=== PATIENT | female | born 1960 | race Caucasian/White ===

== ENCOUNTER → 2020-02-23 07:51 | Outpatient (CLI) | payer BC, OTHER, SELFPAY ==
--- NOTE | 2020-02-23 | DI.ECHO.S_ITS ---
[facility]---------+ [facility] +---------+ : : [address] : : : : [id number] : : : : Phone: [phone]+ Echocardiogram Report + + :Name: SOFIYA RAMOS Study Date: 02/23/2020 Height: 66 in : :[facility] Weight: 216 lb : : Gender: Female BSA: 2.1 m2 : :: 1960 Age: 59 yrs BP: 155/82 mmHg: :Reason For Study: HEMOCHROMATOSIS : :Ordering Physician: BRAD, : :JAVIER BOYD Performed By: Sarah Evans : :Referring: JAVIER SALINAS : + + Interpretation Summary 1) Normal left ventricular thickness, size, wall motion, and systolic function (EF 60-65%). 2) Normal right ventricular size and function. 3) No significant valvular abnormalities. 4) Hypertension present during the study (BP 155/82mmHg). 5) No prior Echo available for comparison. Procedure: A two-dimensional transthoracic echocardiogram with color flow and Doppler was performed. The study quality was technically adequate. There is no prior echocardiogram noted for this patient. The patient was in sinus rhythm with heart rates between 69-78 bpm during the exam. Left Ventricle: The left ventricle is normal in size and wall thickness. The ejection fraction is estimated to be 60-65%. Diastolic parameters suggest probable normal left ventricular diastolic function and normal filling pressures. Right Ventricle: The right ventricle is normal in size and function. Atria: The left atrial size is normal. Right atrial size is normal. There is no Doppler evidence for an interatrial shunt. Mitral Valve: The mitral valve is normal in structure and function. There is trace mitral regurgitation. Aortic Valve: The aortic valve is trileaflet. The aortic valve opens well. There is no aortic valve stenosis. No aortic regurgitation is present. Tricuspid Valve: The tricuspid valve is normal in structure and function. There is trace tricuspid regurgitation. Pulmonary artery pressures cannot be estimated because of the lack of a measurable TR jet velocity. Pulmonic Valve: The pulmonic valve is not well seen, but is grossly normal. There is no pulmonic valvular regurgitation. Great Vessels: The aortic root is normal size. The ascending aorta is at the upper limits of normal in size. The inferior vena cava was not visualized. Pericardium/ Pleura There is no pericardial effusion. There is an anterior echo-free space consistent with a fat pad. There is no pleural effusion. MMode/2D Measurements & Calculations LVIDd: 4.4 cm LVOT diam: 2.0 cm LVIDs: 2.8 cm Ao root diam: 3.3 cm FS: 36.2 % asc Aorta Diam: 3.5 cm EPSS: 0.55 cm Ao Arch Diam (Prox Trans): 2.8 cm IVSd: 0.90 cm LVPWd: 0.70 cm LV gasca. diameter/BSA (cm/m^2): 2.1 LV sys. diameter/BSA (cm/m^2): 1.4 LA A2 area: 15.5 cm2 RA long axis: 4.6 cm LA A4 area: 13.5 cm2 RA area: 12.8 cm2 LA length (vol): 4.9 cm RA vol: 30.1 ml LA vol: 36.3 ml RA : 14.5 ml/m2 LA vol index: 17.6 ml/m2 IVC diam: 1.6 cm RVD1 (basal): 2.9 cm TAPSE: 1.9 cm Doppler Measurements & Calculations Ao V2 max: 91.4 cm/sec LVOT Max Jung: 79.2 cm/sec Ao V2 mean: 64.8 cm/sec LV V1 max P.5 mmHg Ao max P.3 mmHg LV V1 VTI: 14.6 cm Ao mean P.9 mmHg ERNESTO(I,D): 2.5 cm2 Ao V2 VTI: 19.0 cm ERNESTO(V,D): 2.8 cm2 sev ratio: 0.77 ERNESTO indexed to BSA (cm^2/m^2): 1.2 MV E max jung: 51.3 cm/sec PA V2 max: 66.6 cm/sec MV A max jung: 77.9 cm/sec PA V2 mean: 45.6 cm/sec MV E/A: 0.66 PA mean P.96 mmHg Med Peak E' Jung: 6.4 cm/sec PA pr(Accel): 19.1 mmHg E/E' med: 8.0 Lat Peak E' Jung: 6.1 cm/sec E/E' lat: 8.5 E/e' average: 8.2 MV dec time: 0.26 sec SV(LVOT): 47.5 ml Reading Physician:05:40 PM
== END ==
PROVIDERS: Referring Provider Nurse Practitioner; Visit Provider Nurse Practitioner
DX: E83.110 Hereditary hemochromatosis (principal); G47.33 Obstructive sleep apnea (adult) (pediatric); R06.02 Shortness of breath; I10 Essential (primary) hypertension
CPT/HCPCS: 93306

== ENCOUNTER → 2020-03-15 10:44 | Outpatient (CLI) | payer OTHER, SELFPAY ==
[2020-03-15 12:30] LABS: COVID19 -Nasal RAPID Negative (Negative)
== END ==
PROVIDERS: Visit Provider Physician Assistant
DX: Z11.59 Encounter for screening for other viral diseases (principal)
CPT/HCPCS: 87635

== ENCOUNTER 2020-03-21 13:35 | Emergency (ER) | payer OTHER, SELFPAY ==
--- NOTE | 2020-03-21 13:37 | ED_ITS ---
HPI - Dizziness General Chief Complaint: Dizziness Stated Complaint: Dizzy Time Seen by Provider: 03/21/20 13:36 History of Present Illness HPI Narrative: 59-year-old woman with recent diagnosis of hemochromatosis presents with vertigo. She describes the room spinning. Mild symptoms yes terday and worsening over the course of today. She had symptoms similar to this a number of years ago and was found to have hypokalemia. She describes no recent upper respiratory infections, ear infections or sore throat. No recent fever, cough, chills, abdominal pain, constipation, diarrhea or urinary symptoms. She describes no headaches and states that she has but somewhat nauseated with the vertigo today but no emesis. Related Data Previous Rx's Medication Instructions Recorded meclizine 25 mg PO TID PRN #30 tab 03/21/20 ondansetron HCl 4 mg PO Q6H PRN #20 tab 03/21/20 Allergies Allergy/AdvReac Type Severity Reaction Status Date / Time Iodinated Contrast Media Allergy Severe ITCHING Verified 03/21/20 13:47 Penicillins Allergy Severe Hives Verified 03/21/20 13:44 Review of Systems Review of Systems Narrative: Remainder of review of systems including constitutional, ENT, cardiovascular, respiratory, GI, , musculoskeletal, skin, neurologic and psychiatric systems reviewed and are unremarkable except as noted in HPI. Patient History Medical History (Updated 03/21/20 @ 15:14 by Michelle Aguilar MD) Hemochromatosis Social History Smoking Status: Former smoker Exam Narrative Exam Narrative: General: Healthy appearing, in no acute distress. Able to give a complete and coherent history. Well-nourished well-developed HEENT: Moist mucous membranes, normal sclera with reactive pupils, no nystagmus even with positional changes Neck: No JVD, supple Respiratory: Lungs are clear to auscultation, no wheezing no rales no rhonchi. Full and symmetrical air movement Cardiac: Regular rate and rhythm no murmurs no bruits Abdomen: Soft, nontender good bowel tones, no flank pain Skin: Warm and dry, no rashes Neurologic: Grossly neurologically intact with no obvious asymmetries or abnormalities, no sensory abnormalities, no hearing loss Extremities: No trauma, well perfused Psych: Cooperative, appropriate insight and affect Initial Vital Signs Initial Vital Signs: Vital Signs Temperature 98.2 F 12/15/20 13:38 Pulse Rate 78 03/21/20 13:38 Respiratory Rate 20 03/21/20 13:38 Blood Pressure 155/80 H 03/21/20 13:38 Pulse Oximetry 97 03/21/20 13:38 Course Orders Ordered: ED Orders 03/21/20 13:56 Complete Blood Count AUTO DIFF Stat Comprehensive Metabolic Panel Stat Iron Stat Total Iron Binding Capacity Stat Discontinued Medications Sodium Chloride (Normal Saline 0.9%) 1,000 mls @ 1,000 mls/hr IV BOLUS ONE Stop: 03/21/20 14:46 Last Infusion: 03/21/20 14:53 Dose: 0 mls/hr Documented by: Admin: 03/21/20 13:52 Dose: 1,000 mls/hr Documented by: LACHO Lorazepam (Lorazepam 0.5 Mg Tablet) 0.5 mg PO NOW ONE Stop: 03/21/20 15:08 Meclizine HCl (Meclizine Hcl 12.5 Mg Tablet) 25 mg PO NOW ONE Stop: 03/21/20 13:48 Last Admin: 03/21/20 13:51 Dose: 25 mg Documented by: LACHO Ondansetron HCl (Ondansetron 4 Mg/2 Ml Inj) 4 mg IV NOW ONE Stop: 03/21/20 13:48 Last Admin: 03/21/20 13:51 Dose: 4 mg Documented by: LACHO Vital Signs Vital signs: Vital Signs - 8 hr 03/21/20 13:38 03/21/20 13:40 03/21/20 14:00 Temperature 98.2 F Pulse Rate 78 80 73 Respiratory Rate 20 21 18 Blood Pressure 155/80 H 155/80 H Pulse Oximetry 97 96 97 MDM - Dizziness Medical Records Attestation: I reviewed the patient's medical records. Lab Data Attestation: I reviewed the patient's lab results. Result diagrams: 03/21/20 13:56 03/21/20 13:56 Labs: Lab Results 03/21/20 03/21/20 03/21/20 Range/Units 13:56 13:56 13:56 WBC 6.1 (4.5-11.0) X10^3/uL RBC 4.45 (4.0-5.2) X10^6/uL Hgb 12.3 (12.0-16.0) g/dL Hct 37.5 (36-46) % MCV 84.4 (80-100) fL MCH 27.7 (26-34) PG MCHC 32.8 (30-36) % RDW 14.7 (11.6-14.8) % Plt Count 206 (150-400) X10^3/uL Neut % (Auto) 70.0 (50-75) % Lymph % (Auto) 21.0 L (25-40) % [place] % (Auto) 7.5 (3-14) % Eos % (Auto) 0.9 L (2-4) % Baso % (Auto) 0.6 (0-2) % Neut # (Auto) 4300 (7453-8191) /uL Lymph # (Auto) 1300 (3022-0613) /uL [place] # (Auto) 500 (0-900) /uL Eos # (Auto) 100 (0-450) /uL Baso # (Auto) 0 (0-100) /uL Sodium 134 L (137-145) mmol/L Potassium 4.1 (3.4-5.1) mmol/L Chloride 99 (98-107) mmol/L Carbon Dioxide 31 (22-32) mmol/L BUN 14 (7-17) mg/dL Creatinine 0.62 (0.52-1.04) mg/dL Estimated GFR > 60.0 (>60) mL/min BUN/Creatinine Ratio 22.6 H (6-22) Glucose 112 H (80-110) mg/dL Calcium 9.4 (8.4-10.2) mg/dL Iron 76 (37-170) ug/dL TIBC 326 (265-497) ug/dL Total Bilirubin 0.5 (0.2-1.3) mg/dL AST 45 H (14-36) IU/L ALT 48 H (<35) IU/L Alkaline Phosphatase 101 (38-126) U/L Total Protein 7.4 (6.3-8.2) g/dL Albumin 4.1 (3.5-5.0) g/dL Globulin 3.3 (1.7-4.1) g/dL Albumin/Globulin Ratio 1.2 (1.0-2.8) MDM Narrative Medical decision making narrative: 59-year-old woman with increasing vertigo over the last 24 hours. No acute life-threatening findings have been identified. No evidence of stroke or infection. She has responded partially to meclizine and Zofran. At this point she is safe for home discharge Discharge Plan Departure Patient Disposition: Home Clinical Impression: Vertigo Instructions: DI for Vertigo Activity Restrictions/Additional Instructions: Thank you for coming in today Your blood work is reassuring. Your iron level is at 76, also reassuring in light of your hemochromatosis. I am not finding any life-threatening reasons for the vertigo that your currently experiencing. As we discussed in the emergency room you are not showing signs or symptoms of a stroke at this time either. Please use the meclizine/Antivert to help with the room spinning affects. You can use the ondansetron/Zofran for actual nausea. If symptoms are worsening or persisting longer than 2 weeks, it would be very appropriate to seek further evaluation. I hope you feel better Prescriptions: New meclizine 25 mg tablet 25 mg PO TID PRN (Reason: vertigo) Qty: 30 RF: 0 ondansetron HCl 4 mg tablet 4 mg PO Q6H PRN (Reason: nausea) Qty: 20 RF: 0 Referrals: Miscellaneous,Doctor, MD [Primary Care Provider] -
[2020-03-21 13:38] VITALS: BP 155/80; PULSE 78; RESP 20; TEMP 36.8; O2SAT 97; BMI 33.4
[2020-03-21 13:40] VITALS: BP 155/80; PULSE 80; RESP 21; O2SAT 96
[2020-03-21] MEDS: ONDANSETRON 4 MG/2 ML INJ IV (13:51)
[2020-03-21] MEDS: MECLIZINE HCL 12.5 MG TABLET 25 MG PO (13:51)
[2020-03-21] MEDS: SODIUM CHLORIDE 0.9% 1,000 ML 1000 ML IV (13:52)
[2020-03-21 14:00] VITALS: PULSE 73; RESP 18; O2SAT 97
[2020-03-21 14:03] LABS: Add Manual Diff / Slide Review NO; Basophils Absolute Auto 0 /uL (0-100); Basophils Percent Auto 0.6 % (0-2); Eosinophils Absolute Auto 100 /uL (0-450); Eosinophils Percent Auto 0.9 % (2-4); Hematocrit 37.5 % (36-46); Hemoglobin 12.3 g/dL (12.0-16.0); Lymphocytes Absolute Auto 1300 /uL (1100-4500); Mean Corpuscular HGB Conc 32.8 % (30-36); Mean Corpuscular Hemoglobin 27.7 PG (26-34); Mean Corpuscular Volume 84.4 fL (80-100); Monocytes Absolute Auto 500 /uL (0-900); Monocytes Percent Auto 7.5 % (3-14); Neutrophils Absolute Auto 4300 /uL (1500-7000); Platelet Count 206 X10^3/uL (150-400); Red Blood Cell Count 4.45 X10^6/uL (4.0-5.2); Red Cell Distribution Width 14.7 % (11.6-14.8); White Blood Cell Count 6.1 X10^3/uL (4.5-11.0)
[2020-03-21 14:14] LABS: Alanine Aminotransferase 48 IU/L (<35); Albumin 4.1 g/dL (3.5-5.0); Albumin Globulin Ratio 1.2 (1.0-2.8); Alkaline Phosphatase 101 U/L (38-126); Aspartate Aminotransferase 45 IU/L (14-36); BUN Creatinine Ratio 22.6 (6-22); Bilirubin Total 0.5 mg/dL (0.2-1.3); Blood Urea Nitrogen 14 mg/dL (7-17); Calcium 9.4 mg/dL (8.4-10.2); Carbon Dioxide 31 mmol/L (22-32); Chloride 99 mmol/L (98-107); Estimated Glomerular Filt Rate > 60.0 mL/min (>60); Globulin 3.3 g/dL (1.7-4.1); Glucose 112 mg/dL (80-110); HEMOLYSIS < 15 (0-50); Potassium 4.1 mmol/L (3.4-5.1); Sodium 134 mmol/L (137-145); Total Protein 7.4 g/dL (6.3-8.2)
[2020-03-21 14:29] LABS: Iron 76 ug/dL (37-170)
[2020-03-21 14:30] VITALS: PULSE 80; RESP 11; O2SAT 95
[2020-03-21 14:39] LABS: Total Iron Binding Capacity 326 ug/dL (265-497)
[2020-03-21 15:00] VITALS: PULSE 82; RESP 16; O2SAT 95
[2020-03-21] MEDS: LORazepam 0.5 MG TABLET PO (15:40)
[2020-03-21 16:11] VITALS: BP 120/71; PULSE 84; O2SAT 97
== END 2020-03-21 16:21 | disposition home or self-care (01) ==
PROVIDERS: Emergency Provider Emergency Medicine
DX: R42 Dizziness and giddiness (principal); E87.6 Hypokalemia; E83.119 Hemochromatosis, unspecified
CPT/HCPCS: 36415; 80053; 83540; 83550; 85025; 96361; 96374; 99281; 99284; J2405

== ENCOUNTER → 2020-03-29 08:36 | Outpatient (CLI) | payer OTHER, SELFPAY ==
--- NOTE | 2020-03-30 15:49 | DI.NM.S_ITS ---
DATE OF SERVICE: 03/29/2020 PROCEDURE: Exercise perfusion study. INDICATIONS: Shortness of breath, hypertension, history of hemochromatosis. RADIOPHARMACEUTICAL: 25.8 millicurie technetium-99m Myoview IV was injected at stress and 25.9 millicurie technetium-99m Myoview IV was injected at rest. CARDIAC STRESS: The patient underwent exercise perfusion study under the supervision of an attending staff. She walked on Siva protocol for 6 minutes and 38 seconds, achieved 7 METs of workload, normal hemodynamic response. Maximum heart rate was about 130 beats per minute. Baseline rhythm was sinus and low-voltage complexes. During exercise, there were significant artifacts, hence, difficult to interpret stress EKG. However, in the immediate recovery, there were no concerning significant ischemic changes. There were no significant arrhythmias. No chest pain was reported. RAW DATA: Breast shadow was seen. GATED STUDY: Stress LV ejection fraction 93 percent without any obvious wall motion abnormalities. Resting end-diastolic volume 59 mL. TID ratio 0.65, which is within normal limits. Lung/heart ratio 0.17, which is within normal limits. MYOCARDIAL PERFUSION: Stress supine, resting supine and stress prone images were compared to each other. The stress and resting supine images reveal small size, mildly decreased perfusion of distal anterior wall, which got resolved during prone images suggestive of breast tissue attenuation artifact. No convincing ischemia or infarction pattern during prone images. CONCLUSION: I will call this study in a normal myocardial perfusion study with evidence of breast tissue attenuation artifact, which got resolved during prone images. Normal hemodynamic response. The patient achieved 7 METs of workload. Functional aerobic impairment 0 percent. No significant arrhythmia seen. Overall this is a low-risk exercise perfusion stress test. Kristen Blue - KARMA/darnell/paulina doc#: [id number]/job#: [id number] dd: 03/30/2020 13:58:00 dt: 03/30/2020 15:28:00 DICTATING MD/COPIES TO: Riley Palmer MD COPIES MNE: MARYSOL;
== END ==
PROVIDERS: Referring Provider Nurse Practitioner; Visit Provider Nurse Practitioner
DX: E83.110 Hereditary hemochromatosis (principal); R06.02 Shortness of breath; I10 Essential (primary) hypertension
CPT/HCPCS: 78452; 93017; A9502

== ENCOUNTER → 2020-03-29 10:16 | Outpatient (CLI) | payer OTHER, SELFPAY ==
[2020-03-29 11:07] LABS: COVID19 -Nasal RAPID Negative (Negative)
== END ==
PROVIDERS: Visit Provider Physician Assistant
DX: Z20.828 Contact with and (suspected) exposure to other viral communicable diseases (principal)
CPT/HCPCS: 87635

== ENCOUNTER → 2020-10-23 10:05 | Outpatient (CLI) | payer OTHER, SELFPAY ==
[2020-10-23 10:31] LABS: Add Manual Diff / Slide Review NO; Basophils Absolute Auto 100 /uL (0-100); Basophils Percent Auto 0.9 % (0-2); Eosinophils Absolute Auto 100 /uL (0-450); Eosinophils Percent Auto 1.3 % (2-4); Hematocrit 38.2 % (36-46); Hemoglobin 13.4 g/dL (12.0-16.0); Lymphocytes Absolute Auto 1700 /uL (1100-4500); Lymphocytes Percent Auto 28.7 % (25-40); Mean Corpuscular HGB Conc 35.1 % (30-36); Mean Corpuscular Hemoglobin 30.9 PG (26-34); Mean Corpuscular Volume 87.9 fL (80-100); Monocytes Absolute Auto 500 /uL (0-900); Monocytes Percent Auto 9.3 % (3-14); Neutrophils Absolute Auto 3500 /uL (1500-7000); Neutrophils Percent Auto 59.8 % (50-75); Platelet Count 198 X10^3/uL (150-400); Red Blood Cell Count 4.35 X10^6/uL (4.0-5.2); Red Cell Distribution Width 12.9 % (11.6-14.8); White Blood Cell Count 5.9 X10^3/uL (4.5-11.0)
[2020-10-23 10:44] LABS: Alanine Aminotransferase 49 IU/L (<35); Albumin 4.5 g/dL (3.5-5.0); Albumin Globulin Ratio 1.4 (1.0-2.8); Alkaline Phosphatase 89 U/L (38-126); Aspartate Aminotransferase 52 IU/L (14-36); BUN Creatinine Ratio 19.5 (6-22); Bilirubin Total 0.4 mg/dL (0.2-1.3); Blood Urea Nitrogen 15 mg/dL (7-17); Carbon Dioxide 27 mmol/L (22-32); Chloride 101 mmol/L (98-107); Cholesterol 252 mg/dL (140-199); Estimated Glomerular Filt Rate > 60.0 mL/min (>60); Globulin 3.2 g/dL (1.7-4.1); Glucose 113 mg/dL (80-110); HDL Cholesterol 64 mg/dL (40-60); HEMOLYSIS < 15 (0-50); LDL Cholesterol Calculated 158 mg/dL (<100); Potassium 3.9 mmol/L (3.4-5.1); Sodium 135 mmol/L (137-145); Total Protein 7.7 g/dL (6.3-8.2); Triglycerides 151 mg/dL (35-150)
== END ==
PROVIDERS: PCP Registered Nurse; Referring Provider Registered Nurse; Visit Provider Registered Nurse
DX: E83.119 Hemochromatosis, unspecified (principal); R53.83 Other fatigue; E78.5 Hyperlipidemia, unspecified
CPT/HCPCS: 36415; 80053; 80061; 85025

== ENCOUNTER → 2021-01-09 09:09 | Outpatient (CLI) | payer OTHER, SELFPAY ==
[2021-01-09 10:19] LABS: Alanine Aminotransferase 55 IU/L (<35); Albumin 4.7 g/dL (3.5-5.0); Albumin Globulin Ratio 1.5 (1.0-2.8); Alkaline Phosphatase 100 U/L (38-126); Aspartate Aminotransferase 50 IU/L (14-36); Bilirubin Total 0.4 mg/dL (0.2-1.3); Blood Urea Nitrogen 18 mg/dL (7-17); Calcium 9.9 mg/dL (8.4-10.2); Carbon Dioxide 31 mmol/L (22-32); Chloride 97 mmol/L (98-107); Globulin 3.2 g/dL (1.7-4.1); Glucose 105 mg/dL (80-110); HEMOLYSIS < 15 (0-50); Potassium 4.3 mmol/L (3.4-5.1); Sodium 136 mmol/L (137-145); Total Protein 7.9 g/dL (6.3-8.2)
[2021-01-09 16:03] LABS: BUN Creatinine Ratio 24.3 (6-22); Estimated Glomerular Filt Rate > 60.0 mL/min (>60)
== END ==
PROVIDERS: PCP Registered Nurse; Referring Provider Registered Nurse; Visit Provider Registered Nurse
DX: E83.119 Hemochromatosis, unspecified (principal); R53.83 Other fatigue
CPT/HCPCS: 36415; 80053

== ENCOUNTER → 2021-01-22 08:28 | Outpatient (CLI) | payer OTHER, SELFPAY ==
--- NOTE | 2021-01-22 08:31 | DI.RAD.S_ITS ---
PROCEDURE: XR HUMERUS RT 2V INDICATIONS: Right upper arm pain TECHNIQUE: 2 views of the humerus were acquired. COMPARISON: None. FINDINGS: Bones: No acute, displaced fracture or dislocation. Minimal cortical irregularity of the humeral head, which may reflect prior Hill-Sachs deformity. Mild arthrosis of the AC joint with inferior osteophyte extending from the acromion. No suspicious bony lesions. Soft tissues: No suspicious soft tissue calcifications. IMPRESSION: No acute osseous abnormality. Dictated by: Delfin Palomares M.D. on 01/22/2021 at 9:25 Approved by: Delfin Palomares M.D. on 01/22/2021 at 9:26
--- NOTE | 2021-01-22 08:31 | DI.RAD.S_ITS ---
PROCEDURE: XR SHOULDER RT MIN 2V INDICATIONS: right shoulder pain TECHNIQUE: 3 views of the shoulder were acquired. COMPARISON: None. FINDINGS: Bones: No acute, displaced fracture or dislocation. Small osteophyte extending from the inferior aspect of the acromion. Minimal cortical irregularity of the humeral head, which may reflect prior Hill-Sachs deformity. No suspicious bony lesions. Visualized ribs appear intact. Soft tissues: No suspicious soft tissue calcifications. IMPRESSION: No acute osseous abnormality. Dictated by: Delfin Palomares M.D. on 01/22/2021 at 9:27 Approved by: Delfin Palomares M.D. on 01/22/2021 at 9:28
--- NOTE | 2021-01-22 08:31 | DI.RAD.S_ITS ---
PROCEDURE: XR CERVICAL SPINE 2V OR 3V INDICATIONS: Neck pain TECHNIQUE: 3 view(s) of the cervical spine were acquired. COMPARISON: None. FINDINGS: Bones: No fractures or dislocations to the C7 level. The lateral masses of C1 appear intact on the odontoid view. Mild to moderate disc height loss with endplate osteophytosis, most prominent at C4 -7. Uncovertebral/facet arthrosis is noted. No suspicious bony lesions. Soft tissues: No prevertebral soft tissue swelling. IMPRESSION: No acute osseous abnormality. Dictated by: Delfin Palomares M.D. on 01/22/2021 at 9:28 Approved by: Delfin Palomares M.D. on 01/22/2021 at 9:29
== END ==
PROVIDERS: PCP Registered Nurse; Referring Provider Registered Nurse; Visit Provider Registered Nurse
DX: M79.601 Pain in right arm (principal); M25.511 Pain in right shoulder; M54.2 Cervicalgia
CPT/HCPCS: 72040; 73030; 73060

== ENCOUNTER → 2021-10-22 15:43 | Outpatient (CLI) | payer OTHER, SELFPAY ==
[2021-10-22 16:23] LABS: Add Manual Diff / Slide Review NO; Basophils Absolute Auto 0 /uL (0-100); Basophils Percent Auto 0.4 % (0-2); Eosinophils Absolute Auto 100 /uL (0-450); Eosinophils Percent Auto 0.8 % (2-4); Hematocrit 36.5 % (36-46); Lymphocytes Absolute Auto 2000 /uL (1100-4500); Lymphocytes Percent Auto 24.8 % (25-40); Mean Corpuscular HGB Conc 35.8 % (30-36); Mean Corpuscular Volume 86.7 fL (80-100); Monocytes Absolute Auto 600 /uL (0-900); Monocytes Percent Auto 7.8 % (3-14); Neutrophils Absolute Auto 5400 /uL (1500-7000); Neutrophils Percent Auto 66.2 % (50-75); Platelet Count 233 X10^3/uL (150-400); Red Blood Cell Count 4.21 X10^6/uL (4.0-5.2); Red Cell Distribution Width 12.7 % (11.6-14.8); White Blood Cell Count 8.2 X10^3/uL (4.5-11.0)
[2021-10-22 16:42] LABS: Cholesterol 266 mg/dL (140-199); HDL Cholesterol 58 mg/dL (40-60); LDL Cholesterol Calculated 145 mg/dL (<100); Triglycerides 315 mg/dL (35-150)
[2021-10-22 16:43] LABS: Alanine Aminotransferase 37 IU/L (<35); Albumin 4.9 g/dL (3.5-5.0); Albumin Globulin Ratio 1.5 (1.0-2.8); Alkaline Phosphatase 102 U/L (38-126); Aspartate Aminotransferase 42 IU/L (14-36); BUN Creatinine Ratio 22.8 (6-22); Bilirubin Total 0.4 mg/dL (0.2-1.3); Blood Urea Nitrogen 18 mg/dL (7-17); Calcium 9.9 mg/dL (8.4-10.2); Carbon Dioxide 31 mmol/L (22-32); Chloride 95 mmol/L (98-107); Estimated Glomerular Filt Rate > 60 mL/min (>60); Globulin 3.3 g/dL (1.7-4.1); Glucose 91 mg/dL (80-110); HEMOLYSIS < 15 (0-50); Potassium 3.7 mmol/L (3.4-5.1); Sodium 133 mmol/L (137-145); Total Protein 8.2 g/dL (6.3-8.2)
[2021-10-22 17:10] LABS: TSH w/ Reflex to FT4 2.75 uIU/mL (0.47-4.68)
[2021-10-22 19:09] LABS: Hemoglobin A1C% w Est Avg Glu 5.9 % (4.0-6.0)
== END ==
PROVIDERS: Registered Nurse; PCP Pediatrics; Referring Provider Pediatrics; Visit Provider Pediatrics
DX: E78.5 Hyperlipidemia, unspecified (principal); F41.8 Other specified anxiety disorders; K76.0 Fatty (change of) liver, not elsewhere classified; M53.3 Sacrococcygeal disorders, not elsewhere classified; E66.9 Obesity, unspecified
CPT/HCPCS: 36415; 80053; 80061; 83036; 84443; 85025

== ENCOUNTER → 2022-01-22 16:50 | Outpatient (CLI) | payer OTHER, SELFPAY ==
--- NOTE | 2022-01-22 16:53 | DI.MRI.S_ITS ---
PROCEDURE: MR SHOULDER RT WO CON INDICATIONS: PAIN IN RT. SHOULDER TECHNIQUE: Noncontrast oblique coronal T2 fast spin echo with fat saturation, oblique sagittal T1 spin echo and T2 fast spin echo with fat saturation, axial T1 spin echo and T2 fast spin echo with fat saturation through the shoulder. COMPARISON: [facility], CR, XR SHOULDER RT MIN 2V, 01/22/2021, 8:35. [facility], CR, XR SHOULDER 2+ VIEWS RIGHT, 01/08/2022, 15:42. FINDINGS: Image quality: Excellent. Rotator cuff: There is complete tearing of the supraspinatus and infraspinatus tendons from their distal insertions with proximal tendon retraction measuring up to 4 cm. There is mild atrophy and grade 2 fatty infiltration of the supraspinatus and infraspinatus muscles. The teres minor tendon is intact. There is high-grade partial articular sided tearing of the subscapularis tendon at the distal insertion versus complete tearing with scarring in situ. The myotendinous junction appears mildly retracted. There is moderate atrophy and grade 2-3 fatty infiltration of the superior portion of the subscapularis muscle. Grade 2 fatty infiltration of the teres minor muscle may be secondary to chronic denervation changes. No mass is seen along the course of the axillary nerve. Bones and bursae: No acute trabecular bone injury or fracture. The humeral head is high riding and abuts the undersurface of the acromion with mild associated degenerative changes. Multifocal cartilage irregularity is seen in the glenohumeral joint with marginal osteophyte formation. Osseous remodeling of the posterosuperior humeral head may be related to chronic rotator cuff tendon tearing versus possibly a prior impaction injury. Rtlb-bf-vzexyeqs degenerative changes at the acromioclavicular joint with small marginal osteophytes and subchondral cystic changes. A small glenohumeral joint effusion communicates with the subacromial/subdeltoid bursa. Capsule and soft tissues: There is diffuse labral degeneration. The proximal biceps long head tendon is completely torn from its origin with distal tendon retraction. There is mild partial effacement of the fat in the rotator interval. Glenohumeral ligaments are grossly intact. IMPRESSION: 1. 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 Mild atrophy and grade 2 fatty infiltration of the supraspinatus and infraspinatus muscles is seen. The humeral head is high riding and abuts the undersurface of the acromion with associated degenerative changes. 2. High-grade partial articular sided tearing versus complete tearing with scarring in situ involving the superior subscapularis tendon. The myotendinous junction appears mildly retracted. There is moderate atrophy and grade 2-3 fatty infiltration of the subscapularis muscle superiorly. 3. Grade 2 fatty infiltration of the teres minor muscle is nonspecific and may be related to chronic denervation changes. No mass is seen along the course of the axillary nerve. 4. Complete tearing and distal retraction of the biceps long head tendon. 5. Diffuse labral degeneration. Grade 2-3 chondromalacia in the glenohumeral joint. 6. Krxa-eq-iknvezmd degenerative changes at the acromioclavicular joint. 7. Small glenohumeral effusion communicates with the subacromial/subdeltoid bursa. Approved by: James Pearson M.D. on 01/23/2022 at 9:43
== END ==
PROVIDERS: PCP Pediatrics; Referring Provider Orthopaedic Surgery; Visit Provider Orthopaedic Surgery
DX: M75.121 Complete rotator cuff tear or rupture of right shoulder, not specified as traumatic (principal); S46.111A Strain of muscle, fascia and tendon of long head of biceps, right arm, initial encounter; M25.511 Pain in right shoulder; M94.211 Chondromalacia, right shoulder; M25.411 Effusion, right shoulder
CPT/HCPCS: 73221

== ENCOUNTER → 2024-07-09 08:32 | Outpatient (CLI) | payer OTHER, SELFPAY ==
[2024-07-09 09:30] LABS: Add Manual Diff / Slide Review NO; Basophils Absolute Auto 0 /uL (0-100); Basophils Percent Auto 0.4 % (0-2); Eosinophils Absolute Auto 0 /uL (0-450); Eosinophils Percent Auto 0.7 % (2-4); Hematocrit 38.9 % (36-46); Hemoglobin 13.3 g/dL (12.0-16.0); Lymphocytes Absolute Auto 1300 /uL (1100-4500); Lymphocytes Percent Auto 24.6 % (25-40); Mean Corpuscular HGB Conc 34.2 % (30-36); Mean Corpuscular Hemoglobin 30.4 PG (26-34); Mean Corpuscular Volume 88.7 fL (80-100); Monocytes Absolute Auto 400 /uL (0-900); Monocytes Percent Auto 7.2 % (3-14); Neutrophils Absolute Auto 3600 /uL (1500-7000); Neutrophils Percent Auto 67.1 % (50-75); Platelet Count 260 X10^3/uL (150-400); Red Blood Cell Count 4.39 X10^6/uL (4.0-5.2); Red Cell Distribution Width 12.5 % (11.6-14.8); White Blood Cell Count 5.4 X10^3/uL (4.5-11.0)
[2024-07-09 10:23] LABS: TSH w/ Reflex to FT4 1.26 uIU/mL (0.47-4.68)
[2024-07-09 10:30] LABS: Alanine Aminotransferase 26 IU/L (<35); Albumin Globulin Ratio 1.6 (1.0-2.8); Alkaline Phosphatase 130 U/L (38-126); Aspartate Aminotransferase 41 IU/L (14-36); BUN Creatinine Ratio 23.5 (6-22); Bilirubin Total 0.5 mg/dL (0.2-1.3); Blood Urea Nitrogen 19 mg/dL (7-17); Calcium 10.3 mg/dL (8.4-10.2); Carbon Dioxide 25 mmol/L (22-32); Chloride 92 mmol/L (98-107); Cholesterol 203 mg/dL (140-199); Estimated Glomerular Filt Rate > 60 mL/min (>60); Globulin 3.1 g/dL (1.7-4.1); Glucose 114 mg/dL (80-110); HDL Cholesterol 75 mg/dL (40-60); HEMOLYSIS < 15 (0-50); LDL Cholesterol Calculated 102 mg/dL (<100); Potassium 4.2 mmol/L (3.4-5.1); Sodium 129 mmol/L (137-145); Total Protein 8.1 g/dL (6.3-8.2); Triglycerides 131 mg/dL (35-150)
[2024-07-09 10:48] LABS: Vitamin D 25 Hydroxy (D3) 33.5 ng/mL (30.0-100.0)
== END ==
PROVIDERS: PCP Family Medicine; Referring Provider Family Medicine; Visit Provider Family Medicine
DX: I10 Essential (primary) hypertension (principal); K21.9 Gastro-esophageal reflux disease without esophagitis; E78.5 Hyperlipidemia, unspecified; E83.119 Hemochromatosis, unspecified
CPT/HCPCS: 36415; 80053; 80061; 82306; 84443; 85025

== ENCOUNTER → 2024-10-19 10:52 | Outpatient (CLI) | payer OTHER, SELFPAY ==
--- NOTE | 2024-10-19 10:54 | DI.RAD.S_ITS ---
PROCEDURE: XR KNEE LT 3V INDICATIONS: screening TECHNIQUE: 3 views of the knee were acquired. COMPARISON: None. FINDINGS: Bones: There are no osseous abnormalities. Joints: Moderate patellofemoral and mild tibiofemoral degenerative change appreciated. There is mild lateral patellar subluxation from the trochlear groove. Soft tissues: Normal IMPRESSION: Degeneration. Mild lateral patellar subluxation . Dictated by: Modesto Arthur M.D. on 10/20/2024 at 11:05 Approved by: Modesto Arthur M.D. on 10/20/2024 at 11:06
--- NOTE | 2024-10-19 10:54 | DI.RAD.S_ITS ---
PROCEDURE: XR HIP W PEL IF DONE LT 2V INDICATIONS: screening TECHNIQUE: Two views of the left hip were acquired. COMPARISON: None. FINDINGS: Bones: There are no osseous abnormalities. SI and hip joints: Severe bilateral hip and mild bilateral SI degenerative change noted. There is severe L5-S1 degenerative disc and facet disease Soft tissues: No soft tissue swelling, calcification or mass. IMPRESSION: Severe bilateral hip degeneration. Severe L5-S1 degenerative disc and facet disease Dictated by: Modesto Arthur M.D. on 10/20/2024 at 11:04 Approved by: Modesto Arthur M.D. on 10/20/2024 at 11:05
--- NOTE | 2024-10-19 10:54 | DI.RAD.S_ITS ---
PROCEDURE: XR LUMBAR SPINE 2-3V INDICATIONS: screening TECHNIQUE: 3 views of the lumbar spine were acquired. COMPARISON: None. FINDINGS: Lumbar spine curvature and alignment: Moderate idiopathic levo scoliotic curve appreciated with the apex at L3. Bones: Mild right lateral wedging L2-L3 and L4 vertebral bodies noted. Disc spaces: Severe degenerative disc disease T12-L1 through L3-4 . There is also mild L4-5 and L5-S1 degenerative disc disease. Moderate L2-3 L3-4 L4-5 and severe L5-S1 degenerative facet disease. Severe severe left hip degeneration noted Soft tissues: No soft tissue swelling, calcification or mass. IMPRESSION: Degeneration Dictated by: Modesto Arthur M.D. on 10/20/2024 at 11:06 Approved by: Modesto Arthur M.D. on 10/20/2024 at 11:08
== END ==
PROVIDERS: PCP Family Medicine; Referring Provider Family Medicine; Visit Provider Family Medicine
DX: M16.0 Bilateral primary osteoarthritis of hip (principal); M17.12 Unilateral primary osteoarthritis, left knee; S83.012A Lateral subluxation of left patella, initial encounter; M43.06 Spondylolysis, lumbar region; M47.816 Spondylosis without myelopathy or radiculopathy, lumbar region; M47.817 Spondylosis without myelopathy or radiculopathy, lumbosacral region; M51.35 Other intervertebral disc degeneration, thoracolumbar region; M51.369 Other intervertebral disc degeneration, lumbar region without mention of lumbar back pain or lower extremity pain; M51.379 Other intervertebral disc degeneration, lumbosacral region without mention of lumbar back pain or lower extremity pain
CPT/HCPCS: 72100; 73502; 73562

== ENCOUNTER → 2024-12-14 06:51 | Outpatient (CLI) | payer MEDICARE, OTHER, SELFPAY ==
--- NOTE | 2024-12-14 06:53 | DI.US.S_ITS ---
PROCEDURE: US ARTERIAL DUPLEX LE BI INDICATIONS: HYPERLIPIDEMIA. NON-HEALING WOUND LEFT LEG. TECHNIQUE: Color and pulse Doppler interrogation was performed of both lower extremity arterial systems, with image documentation. COMPARISON: None. FINDINGS: Right lower extremity: Common femoral artery: 193 cm/sec, with triphasic flow. Deep femoral artery: 101 cm/sec, with triphasic flow. Proximal superficial femoral artery: 107 cm/sec, with triphasic flow. Mid superficial femoral artery: 95 cm/sec, with triphasic flow. Distal superficial femoral artery: 73 cm/sec, with triphasic flow. Popliteal artery: 54 cm/sec, with triphasic flow. Posterior tibial artery: 75 cm/sec, with triphasic flow. Anterior tibial artery/dorsalis pedis: 75 cm/sec, with triphasic flow. Sherman-scale imaging description: Scattered mild atherosclerotic plaque and calcifications. Left lower extremity: Common femoral artery: 128 cm/sec, with triphasic flow. Deep femoral artery: 109 cm/sec, with triphasic flow. Proximal superficial femoral artery: 106 cm/sec, with triphasic flow. Mid superficial femoral artery: 109 cm/sec, with triphasic flow. Distal superficial femoral artery: 83 cm/sec, with triphasic flow. Popliteal artery: 54 cm/sec, with triphasic flow. Posterior tibial artery: 47 cm/sec, with biphasic flow. Anterior tibial artery/dorsalis pedis: 60 cm/sec, with triphasic flow. Sherman-scale imaging description: Scattered mild atherosclerotic plaque and calcifications. IMPRESSION: 1. Increased right common femoral artery velocity may be secondary to a 20-49% stenosis without spectral broadening or turbulence and normal triphasic flow. This may be secondary to underlying proximal iliac arterial disease. 2. Mild 1-19% stenosis of the right posterior tibial and dorsalis pedis arteries. Dictated by: Shyam Castillo M.D. on 12/14/2024 at 10:07 Approved by: Shyam Castillo M.D. on 12/14/2024 at 10:23
== END ==
PROVIDERS: PCP Family Medicine; Referring Provider Family Medicine; Visit Provider Family Medicine
DX: I73.9 Peripheral vascular disease, unspecified (principal)
CPT/HCPCS: 93925

== ENCOUNTER → 2025-01-04 10:30 | Outpatient (CLI) | payer MEDICARE, OTHER, SELFPAY | LOC: WC 10:36 | PROVIDERS: Family Provider Family Medicine; PCP Family Medicine; Referring Provider Orthopaedic Surgery Adult Reconstructive Orthopaedic Surgery; Visit Provider Surgery | DX: T81.89XA Other complications of procedures, not elsewhere classified, initial encounter (principal); S81.802A Unspecified open wound, left lower leg, initial encounter; L98.8 Other specified disorders of the skin and subcutaneous tissue; I10 Essential (primary) hypertension; E78.5 Hyperlipidemia, unspecified; Z87.891 Personal history of nicotine dependence; Z88.0 Allergy status to penicillin | CPT/HCPCS: 11042; 99203; 99213 ==

== ENCOUNTER → 2025-01-11 15:41 | Outpatient (CLI) | payer MEDICARE, OTHER, SELFPAY | LOC: WC 15:44 | PROVIDERS: Family Provider Family Medicine; PCP Family Medicine; Referring Provider Family Medicine; Visit Provider Surgery | DX: T81.89XA Other complications of procedures, not elsewhere classified, initial encounter (principal); S81.802A Unspecified open wound, left lower leg, initial encounter; L98.8 Other specified disorders of the skin and subcutaneous tissue; I10 Essential (primary) hypertension; Z88.0 Allergy status to penicillin | CPT/HCPCS: 97602; 99213 ==

== ENCOUNTER → 2025-01-18 15:16 | Outpatient (CLI) | payer MEDICARE, OTHER, SELFPAY | LOC: WC 15:18 | PROVIDERS: Family Provider Family Medicine; PCP Family Medicine; Referring Provider Orthopaedic Surgery Adult Reconstructive Orthopaedic Surgery; Visit Provider Surgery | DX: S81.802D Unspecified open wound, left lower leg, subsequent encounter (principal); T81.89XD Other complications of procedures, not elsewhere classified, subsequent encounter | CPT/HCPCS: 99212; 99213 ==

== ENCOUNTER → 2025-02-08 08:27 | Outpatient (CLI) | payer MEDICARE, OTHER, SELFPAY ==
--- NOTE | 2025-02-08 09:04 | EKG_ITS ---
[address] [address] Test Date: 2025-02-08 Pat Name: Kristen Blue Department: 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
[2025-02-08 09:07] LABS: Add Manual Diff / Slide Review NO; Hematocrit 34.2 % (36-46); Hemoglobin 11.8 g/dL (12.0-16.0); Lymphocytes Absolute Auto 1200 /uL (1100-4500); Mean Corpuscular HGB Conc 34.6 % (30-36); Mean Corpuscular Hemoglobin 30.6 PG (26-34); Mean Corpuscular Volume 88.4 fL (80-100); Platelet Count 220 X10^3/uL (150-400)
[2025-02-08 09:20] LABS: Hemoglobin A1C% w Est Avg Glu 5.8 % (4.0-6.0)
[2025-02-08 09:47] LABS: Albumin 4.7 g/dL (3.5-5.0); Blood Urea Nitrogen 17 mg/dL (7-17); Calcium 9.9 mg/dL (8.4-10.2); Carbon Dioxide 25 mmol/L (22-32); Chloride 101 mmol/L (98-107); Estimated Glomerular Filt Rate > 60 mL/min (>60); Glucose 118 mg/dL (70-99); HEMOLYSIS < 15 (0-50); Potassium 4.3 mmol/L (3.4-5.1); Sodium 135 mmol/L (137-145)
[2025-02-08 09:56] LABS: Prealbumin 32.2 mg/dL (17.6-36.0)
[2025-02-08 10:07] LABS: Vitamin D 25 Hydroxy (D3) 19.3 ng/mL (30.0-100.0)
== END ==
PROVIDERS: Family Provider Family Medicine; PCP Family Medicine; Referring Provider Orthopaedic Surgery Adult Reconstructive Orthopaedic Surgery; Visit Provider Orthopaedic Surgery Adult Reconstructive Orthopaedic Surgery
DX: Z01.818 Encounter for other preprocedural examination (principal); R73.09 Other abnormal glucose; E83.52 Hypercalcemia; M16.12 Unilateral primary osteoarthritis, left hip; E87.1 Hypo-osmolality and hyponatremia; E66.9 Obesity, unspecified
CPT/HCPCS: 36415; 80048; 82040; 82306; 83036; 84134; 85025; 93005

== ENCOUNTER 2025-04-05 13:03 | Inpatient (IN) | payer MEDICARE, OTHER, SELFPAY ==
[2025-03-25 08:35] VITALS: BMI 274.7
[2025-04-04] VITALS (13 sets, daily range): BP systolic 94–166; BP diastolic 46–86; PULSE 81–99; RESP 14–20; TEMP 36.1–36.8; O2SAT 93–99; BMI 30.7
[2025-04-04] MEDS: LACTATED RINGERS 1,000 ML 42 ML IV ×2 (06:51→08:46)
--- NOTE | 2025-04-04 07:39 | PM.PREOP ---
Pre-operative Note Interval Note History & Physical reviewed/Exam performed by Physician: Yes Changes to H&P: No
--- NOTE | 2025-04-04 07:54 | DI.RAD.S_ITS ---
PROCEDURE: XR HIP W PEL IF DONE LT 2V INDICATIONS: mellissa TECHNIQUE: 2 intraoperative fluoroscopic view(s) of the hip acquired. COMPARISON: [facility], , XR HIP W PEL LT 2V, 10/19/2024, 10:59. FINDINGS: Intraoperative fluoroscopic images shows left total hip arthroplasty in progress. IMPRESSION: Fluoro guidance was provided intraoperatively for left total hip arthroplasty performed by ordering physician. Dictated by: Zane Robins M.D. on 04/04/2025 at 10:37 Approved by: Zane Robins M.D. on 04/04/2025 at 10:38
--- NOTE | 2025-04-04 08:34 | SUR.OPER ---
Supine on padded Mico table with bilateral legs secured in padded positioning boots and suspended in positioning spars, operative leg in traction per surgeon. Head on one pillow. Bilateral arms secured on padded armboards <90 degrees abduction.. Padded perineal post in place per surgeon.
[2025-04-04] MEDS: KETOROLAC 30 MG/ML VIAL 15 MG INJ (08:47)
--- NOTE | 2025-04-04 09:51 | P.OP_ITS ---
Operative Date/Time/Diagnoses Date of procedure: 04/04/25 Time of procedure: 07:45 Pre-op diagnosis: Left hip osteoarthritis Post-op diagnosis: same Procedure & Clinicians Procedure: Left total hip arthroplasty Same procedure(s) as scheduled: Yes Surgeon: Saleem Larson Assisted?: Yes Senior Ui Web Developer: Kassidy Grove Anesthesia Type: General and Local Operative Notes Findings: Severely arthritic hip with reactive inflammatory tissue throughout the hip joint Closure Type: primary Applied: implant(s) Estimated Blood Loss (mL): 250 Procedure in detail: 1. Left Uncemented Direct Anterior Natalee Total Hip Arthroplasty (16220) 2. Computer-Assisted Musculoskeletal Surgical Navigational Orthopedic Procedure Using Fluoroscopic Image Guidance (0054T) Implants: * G7 PPS size 52 cup? * Z1 femoral stem size 4 high offset? * 36 mm +3.5 ceramic femoral head? Procedure Summary: This 64-year-old female patient had severe arthritis and a nonhealing wound on her operative randolph. Prior to proceeding with surgery she had the nonhealing randolph wound treated until it had fully resolved. Intraoperatively today she had large osteophytes around the socket which were removed to limit the risk of impingement. Her soft tissues were fairly mobile and I was able to expose the femur without the need for a conjoined tendon release. I initially trialed with a standard offset and a +0 head but this was unstable and had significantly decreased offset and slightly decreased leg lengths so I upsized to a high offset and a +3.5 head which resolved all of the issues. Stability after final implantation was excellent as I was unable to manually dislocate the hip and was able to maximally externally rotate it to about 100?. Procedure in Detail: This patient was seen preoperatively and evaluated for hip pain which was refractory to numerous nonoperative treatment modalities. Their hip pain correlated with radiographic changes demonstrating significant degeneration in the hip joint. The risks and benefits of continued nonoperative management ve rsus operative management were discussed at length and all of the patient?s questions were answered. Additional educational materials providing further details beyond our discussion in clinic were provided via a publicly available patient education video which included the incidence of medical complications associated with total hip arthroplasty, reasons for revision following total hip arthroplasty, and patient satisfaction rates following total hip arthroplasty. With this understanding of the risks inherent to the procedure, the patient elected to move forward with operative management. Following preoperative optimization, the patient was scheduled for surgery. The patient was met in the preoperative holding area the day of the procedure and all questions were answered. The patient?s nares were swabbed in order to decolonize them from MRSA. Informed consent was signed and the left limb was marked with indelible ink.? The patient was brought back to the operating room where anesthesia was induced. The patient was transferred to the [place] table and all bony prominences were padded. The operative site was prepped and draped in the usual sterile fashion. Prior to incision, tranexamic acid and cefazolin were administered. Operative templating images were displayed demonstrating the anticipated implant sizes and correct operative extremity. A timeout procedure was performed verifying the patient?s identity, medical comorbidities, allergies, relevant medications, anesthesia type and the surgical plan. All present were in agreement. The assistance of a physician general surgery physician assistant was required for positioning, room setup, soft tissue retraction and wound closure. Without this assistance, the procedure would have been significantly more challenging and time consuming.?? A direct anterior approach to the hip was utilized. This was performed with a longitudinal incision through a Heuter interval. The incision was planned 2 cm distal and 2 cm lateral to the ASIS extending towards the lateral patella, in line with the muscle body of the TFL. Following incision, the subcutaneous tissue was dissected while taking care to avoid injury to the lateral femoral cutaneous nerve. The fascia overlying the TFL was identified by dissecting off the overlying fat and identifying perforating vessels to the TFL. The TFL fascia was incised and dissected away from the medial border of the TFL. A retractor was placed over the superior femoral neck between the abductors and the hip capsule and used to reflect the TFL laterally. A [place] self-retainer was then placed in the distal aspect of the wound between the TFL and the rectus femoris. This was tensioned to open up the direct anterior interval and the lateral circumflex vessels were identified and coagulated using electrocautery. The floor of the TFL fascia was incised, exposing the pericapsular fat overlying the hip capsule. A second cobra retractor was placed on the inferior femoral neck. A retractor was placed on the anterior wall of the acetabulum and used to tension the reflected head of rectus femoris, which was then released in order to limit soft tissue tension. A capsulotomy was made in the midline of the anterior hip capsule in line with the femoral neck ending at the vastus tubercle. The anterior retractor was removed as soon as the capsulotomy was completed in order to limit the amount of time that a soft tissue retractor remained on the anterior wall and limit tension on the femoral nerve. Tag stitches were placed in the superior and inferior leaflets of the hip capsule. An Dick soft tissue retractor was introduced over the tag stitches and tensioned in the interval between the rectus femoris and the TFL in order to retract and protect those muscles. The cobra retractors were replaced intracapsularly, with one over the superior neck in the pocket created by the base of the greater trochanter and the other on the femoral head. The capsulotomy was extended laterally to the base of the greater trochanter and medially to the lesser trochanter. This required externally rotating the hip. Once the lesser trochanter had been identified, a neck cut was planned according to measurements from preoperative templating. A ruler was cut at the length measured between the superior aspect of the lesser trochanter and the collar of the prosthesis. This line was extended towards the inferior aspect of the lateral cobra retractor to plan a cut which would leave minimal residual femoral neck laterally. The neck was cut at 60 degrees of external rotation along that line. A second cut was performed to remove a large napkin ring and facilitate head extraction. The napkin ring cut and femoral head were removed.?? A broad anterior wall retractor was placed between the labrum and the anterior capsule so that the anterior capsule would prevent capturing and pinching the femoral nerve anteriorly. An additional retractor was placed on the posterior wall. External rotation and traction were applied through the [place] table so that the cut surface of the femoral neck would not restrict access to the acetabulum. The labrum was excised sharply and the pulvinar was excised with electrocautery to limit bleeding from branches of the obturator artery. Acetabular reamers were selected based on preoperative templating and measurements of the excised femoral head. These were introduced into the acetabulum. Fluoroscopy was utilized to replicate a standing AP pelvis radiograph by centering over the pelvis, rotating until there was appropriate symmetry between the obturator foramen, and introducing caudal tilt to match the position of the pubic symphysis relative to the sacrococcygeal junction according to the patient?s anatomy. Once satisfied with the reaming depth corresponding to the preoperative template and the pinch fit between the columns, an appropriate sized acetabular cup was selected which would provide 1 mm of press-fit. This cup was introduced and manipulated until appropriate abduction and anteversion angles were obtained with careful attention to appropriate abduction and anteversion angles as evaluated by the position of the cup relative to the anterior and posterior dykes of the acetabulum and the AP fluoroscopy which recreated the patient?s standing radiograph. The cup was impacted into place. Peripheral osteophytes were removed. The acetabular liner was then placed with care to ensure locking of the locking mechanism. Attention was then turned to the femur. All retractors were removed, traction was released, a retractor was placed in the interval between the hip capsule and the gluteus minimus. The lateral capsule was released using electrocautery. Traction was released and a [place] hook was placed posteriorly around the proximal femur at the level of the vastus ridge. The table height was lowered in order to restrict the tension on the anterior structures during hip hyperextension to limit the risk of femoral nerve palsy. With traction off and the hip at 90 degrees of external rotation, the hip was hyperextended and adducted while manually elevating the femur away from the acetabulum with the [place] hook to avoid hooking the greater trochanter on the pelvis. An asymmetric retractor was placed over the calcar and a broad double-pronged retractor was placed over the greater trochanter. The tag stitch capturing the lateral leaflet of the capsule was moved to the medial side, leaving the conjoined and piriformis tendons isolated in the face of the greater trochanter. The hip was externally rotated and elevated. A release of the conjoined tendon was not necessary in order to obtain adequate exposure for broaching. The canal was opened with an opening broach and a rasp was used to remove cancellous bone. A rongeur was used to remove the residual lateral bone at the base of the greater trochanter to avoid placing the stem in varus. The femur was then broached to the appropriate sized stem yielding good rotational fit and fill of the canal as well as appropriate version of the stem trial. Neck and head trials were placed, all retractors were removed and the hip was returned to neutral abduction and extension. I then reduced the hip and manually trialed it before changing surgical gloves. Initial trialing was performed with a size 3 broach, a standard offset neck and a +0 head. I initially manually externally rotated the hip and found that it dislocated around 115?. I then locked the hip in 45 degrees of external rotation and dropped it to the floor with traction off which demonstrated no instability. An OrthoGrid overlay image was obtained by matching the abduction angle of the nonoperative hip to the operative hip and overlaying the offset and leg length of the operative side relative to the nonoperative side while matching pelvic morphology. This overlay image demonstrated that the operative site was very slightly short and had significantly decreased offset as compared to the other side. AP and lateral hip fluoroscopic images were obtained to evaluate the broach size which demonstrated good canal fill. The hip was dislocated and I returned to the broaching position. Based on my evaluation during initial trialing I planned to upsize to a high offset and a +3.5 head. After inspecting the size 3 broach I found that I could sink it significantly further down the canal so I went up to a size 4 broach which I was able to sink down to the same point where they size 3 broach had sat. I calcar planed again at that position which did not remove a significant amount of additional bone. The definitive stem was placed and the trunnion was cleaned and dried. I placed a ceramic head onto the trunnion and impacted it into place on the Arizmendi taper.?? All retractors were removed and the hip was reduced. A dilute mixture of betadine and peroxide was used to bathe the soft tissues during final fluoroscopic assessment. Appropriate component positioning was confirmed on an OrthoGrid overlay image comparing the nonoperative side to the operative side. Appropriate stem fill was evaluated on AP and lateral hip radiographs. No previously unrecognized fractures were identified on these radiographs. There was no hip instability with maximum (100?) external rotation as well as a 45 degree drop test. The hip was copiously irrigated with pulse lavage. The capsule was closed with absorbable interrupted suture. The TFL fascia was closed with barbed suture while carefully protecting the lateral femoral cutaneous nerve from entrapment. A mixture of Ropivacaine, Epinephrine and Toradol was infiltrated throughout the soft tissues. The skin was closed with 2-0 and 3-0 sutures. Surgical glue was applied and a soft dressing was placed.??The sponge, instrument and needle counts were reported as being correct at the end of the case.??No obvious complications occurred. The patient was transferred from the [place] table back to a stretcher. The patient emerged from anesthesia without difficulty and was taken to the PACU in a stable condition.? Plan for aftercare: * No hip precautions * Weightbearing as tolerated * Aspirin 81 twice per day for DVT prophylaxis * Anticipate discharge home today * Multimodal pain regimen with no IV opioids ordered * Follow up at [facility] in 2 weeks Complications: none Post-operative Condition: stable Disposition: same day surgery
--- NOTE | 2025-04-04 10:30 | DI.RAD.S_ITS ---
PROCEDURE: XR HIP W PEL IF DONE LT 2V INDICATIONS: POST OP LEFT ANTERIOR HIP TECHNIQUE: AP pelvis and lateral view of the hip acquired. COMPARISON: [facility], [place], XR HIP W PEL LT 2V, 04/04/2025, 8:55. FINDINGS: Bones: Patient is status post left hip arthroplasty, with hardware components in expected positions. The hip joint appears congruent. The visualized bony structures appear intact. Soft tissues: Overlying postoperative changes are noted. No suspicious soft tissue densities. IMPRESSION: Expected post-operative appearance of a hip arthroplasty. Dictated by: Zane Robins M.D. on 04/04/2025 at 13:10 Approved by: Zane Robins M.D. on 04/04/2025 at 13:11
[2025-04-04] MEDS: KETOROLAC 30 MG/ML VIAL 15 MG IV (11:21)
[2025-04-04] MEDS: ACETAMINOPHEN IV 1,000 MG/100 ML VIAL 400 MG IV (11:21)
[2025-04-04] MEDS: ALBUMIN HUMAN 12.5 GM/250 ML VIAL IV (14:07)
[2025-04-04 14:12] LABS: Hematocrit 26.4 % (36-46); Hemoglobin 9.1 g/dL (12.0-16.0)
--- NOTE | 2025-04-04 14:28 | PT-IP ANOTE ---
Tried to see pt in PACU x 2, continues to be orthostatic per RN and receiving fluids. Did not try to mobilize today, will continue to follow as able for evaluation.
--- NOTE | 2025-04-04 15:44 | SUR.PHASEII ---
Received report from Diogo Aguirre RN and assumed care of pt. New labs resulted. Albumin infused and pt resting quietly, awaiting room assignment. VSS with Pt's own CPAP in place.
[2025-04-04] MEDS: ACETAMINOPHEN 325 MG TABLET 650 MG PO ×2 (17:12→21:22)
[2025-04-04] MEDS: LACTATED RINGERS 1,000 ML 100 ML IV ×2 (17:12→23:27)
[2025-04-04] MEDS: ASPIRIN EC 81 MG TABLET PO (20:14)
[2025-04-04] MEDS: SENNOSIDES 8.6 MG TABLET 17.2 MG PO (20:14)
[2025-04-04] MEDS: SODIUM CHLORIDE 0.9% FLUSH 10 ML IV (20:15)
[2025-04-05] MEDS: ACETAMINOPHEN 325 MG TABLET 650 MG PO ×3 (04:00→21:28)
[2025-04-05 05:10] LABS: Add Manual Diff / Slide Review NO; Lymphocytes Absolute Auto 1200 /uL (1100-4500); Mean Corpuscular HGB Conc 35.5 % (30-36); Mean Corpuscular Hemoglobin 31.5 PG (26-34); Mean Corpuscular Volume 88.5 fL (80-100); Platelet Count 127 X10^3/uL (150-400)
[2025-04-05 05:14] LABS: Hematocrit 18.5 % (36-46); Hemoglobin 6.6 g/dL (12.0-16.0)
[2025-04-05 05:18] LABS: Blood Urea Nitrogen 21 mg/dL (7-17); Calcium 8.7 mg/dL (8.4-10.2); Carbon Dioxide 24 mmol/L (22-32); Chloride 102 mmol/L (98-107); Estimated Glomerular Filt Rate > 60 mL/min (>60); Glucose 119 mg/dL (70-99); HEMOLYSIS < 15 (0-50); Potassium 4.1 mmol/L (3.4-5.1); Sodium 130 mmol/L (137-145)
[2025-04-05 05:38] VITALS: BP 98/41; PULSE 95; RESP 20; TEMP 37.6; O2SAT 93
--- NOTE | 2025-04-05 06:16 | PC.NURSE ---
night clerk RN note pt A&Ox4, using call johnson appropriately, c/o mod amt pain L hip, prn analgesics given with effect, pt denies dizziness when up to bedside commode with assist and FWW, slightly hypotensive overnight, asymptomatic, lungs clear, O2 sats >92% on RA, voiding clear yellow urine on bedside commode, dsg to L hip intact with small amt bruising noted on lateral side of dsg, periph IV site patent, meds and labs as ordered, encouraged to use call johnson, care ongoing 0515- notified of low H&H by coodinator, attempted to call interpersonal communications professor MD at 0540 when all lab values resulted, no response from interpersonal communications professor MD, nursing coodinator aware and she tried paging interpersonal communications professor MD and surgeon, type and screen order placed per protocol in anticipation of blood transfusion, see her note for details
[2025-04-05 08:14] VITALS: BP 117/44; PULSE 86; RESP 15; TEMP 37
[2025-04-05] MEDS: VENLAFAXINE ER 75 MG CAP 300 MG PO (08:31)
[2025-04-05] MEDS: CHOLECALCIFEROL (VITAMIN D3) 5,000 UNIT TABLET 10000 UNIT PO (08:31)
[2025-04-05] MEDS: ASPIRIN EC 81 MG TABLET PO ×2 (08:31→21:29)
[2025-04-05] MEDS: MELOXICAM 7.5 MG TABLET 15 MG PO (08:31)
[2025-04-05] MEDS: POTASSIUM CHLORIDE 20 MEQ TAB PO (08:31)
[2025-04-05] MEDS: PANTOPRAZOLE DR 40 MG TABLET PO (08:31)
[2025-04-05] MEDS: CYANOCOBALAMIN (VITAMIN B-12) 500 MCG TABLET 1000 MCG PO (08:32)
[2025-04-05] MEDS: SODIUM CHLORIDE 0.9% FLUSH 10 ML IV (08:32)
--- NOTE | 2025-04-05 09:04 | P.DS_ITS ---
History of Present Illness History of Present Illness Chief complaint: Left NIMA anterior Narrative: Attending: Dr. Saleem Larson Orthopedic Procedures: ?Left Total Hip Arthroplasty 64 year old female with a past medical history of anemia, hypertension and obstructive sleep apnea presented to [facility] on 04/04/2025 for planned left total hip arthroplasty by Dr. Larson. This elective procedure was indicated by chronic left hip arthritis that failed to improve sufficiently with conservative treatment. On the date of surgery there were no changes to the patient?s medical history, medications or allergies. Consent had been obtained and the patient agreed to proceed with planned surgery. Discharge Providers Provider Discharge Date: 04/06/25 Primary care physician: Fercho Haas DO Consults: 04/04/25 07:52 Consult to Anesthesiology Routine Comment: Consulting Provider: Anesthesiologist Reason for consultation: Regional block for post-operative pain control 04/04/25 13:22 Consult to Physical Therapy Evaluate & Treat Comment: Physician Instructions: Evaluate and Treat 04/04/25 16:19 Consult to Discharge Planning Routine Comment: Consult to Physical Therapy Evaluate & Treat Comment: Physician Instructions: Postop NIMA Discharge provider: AZUL Antoine Dr Summary Hospital Course Hospital Course: On 04/04/2025 the patient was brought to the operating room for planned left total hip arthroplasty by Dr Larson. There were no known intraoperative complications and no signficant blood loss. The patient was transferred to the postoperative recovery area and monitored appropriately. There was concern for post operative dizziness in PACU and a hemoglobin/hematocrit was obtained which resutled as 9.1/26.4 immediately post operatively. Later the patient was transferred to the acute care unit [facility] for monitoring overnight and physical therapy. She was unable to tolerate physical therapy on post operative day 0 due to dizziness. On postoperative day one, the patient was making urine spontaneously. Her hemoglobin on post operative day 1 was 6.6 and she consented to a transfusion of 1 unit of packed red blood cells. Her repeat hemoglobin and hematocrit was 7.6. After the transfusion she denied chest pain and dypsnea with improved dizziness. Her blood pressure improved as well. The patient was awaiting physical therapy evaluation during orthopedic rounds. Pain was well-controlled on oral analgesics including acetaminophen and meloxicam with use of oxycodone and tramadol. The patient denied any numbness or tingling in the operative leg. She denies any recent stomach pain, reflux, changes in her bowel habits, dark colored stools or vaginal spotting. She reports she has been feeling dizzy for several weeks leading up to surgery which she attributed to incense burning in her home. Today around 13:00 nursing reported that during physical therapy the patient was diaphoretic, nauseous and dizzy leading to a shortened session. Given persistent hypotension, anemia and dizziness she will require another overnight stay at [facility] for continued treatment and monitoring. Orthopedics to reevaluate the patient tomorrow. ROS today: no chest pain, dyspnea, fever, chills, nausea or emesis Exam Vital Signs (past 8 hours): - 04/05/25 05:38 04/05/25 08:14 Temperature 99.7 F H 98.6 F Pulse Rate 95 H 86 Respiratory Rate 20 15 Blood Pressure 98/41 L 117/44 L Pulse Oximetry 93 Oxygen Flow Rate 0 Oxygen Delivery Method Room Air Oxygen Flow Rate 0 Narrative Exam Narrative: Well developed, well-nourished 64 year old female, resting comfortably Normal respiratory effort on room air without accessory muscle use Dressing is clean, dry and intact to the left hip without drainage. Small hematoma Flexion and extension of the first hallux, ankle and knee are intact SCDs in place Palpable dorsalis pedis pulse. Sensation grossly intact to light touch about L2- S1 distributions Objective Labs 04/05/25 13:30 04/05/25 04:26 Labs: Laboratory Results - last 24 hr 04/04/25 04/05/25 04/05/25 14:01 04:26 05:50 WBC 6.8 RBC 2.09 L Hgb 9.1 L 6.6 L* Hct 26.4 L 18.5 L* MCV 88.5 MCH 31.5 MCHC 35.5 RDW 12.6 Plt Count 127 L Neut % (Auto) 70.0 Lymph % (Auto) 18.0 L [place] % (Auto) 11.7 Eos % (Auto) 0.2 L Baso % (Auto) 0.1 Neut # (Auto) 4800 Lymph # (Auto) 1200 [place] # (Auto) 800 Eos # (Auto) 0 Baso # (Auto) 0 Sodium 130 L Potassium 4.1 Chloride 102 Carbon Dioxide 24 BUN 21 H Creatinine 0.74 Estimated GFR > 60 BUN/Creatinine Ratio 28.4 H Glucose 119 H Calcium 8.7 Blood Type O Positive Antibody Screen Negative Crossmatch See Detail [facility] Medical History (Updated 03/25/25 @ 08:38 by Denice Verma RN) ALEX on CPAP Anxiety and depression Vitamin D deficiency Anemia Chronic left hip pain Bilateral hip pain Claudication Wound of skin Encounter for pre-operative cardiovascular clearance Otalgia, left ear Osteoarthritis of left knee Osteoarthritis of left hip Acquired spondylolysis of lumbar spine Skin lesions, generalized Hypercalcemia Hyponatremia Neuropathy Hypertension Obesity (BMI 35.0-39.9 without comorbidity) Sacroiliac joint dysfunction of left side Abdominal pain Right shoulder pain Right arm pain Neck pain Fatigue Hemochromatosis Surgical History (Updated 03/25/25 @ 09:03 by Denice Verma RN) Hx of cholecystectomy (2002) Social History household members: spouse Smoking Status: Former smoker alcohol intake: current Discharge Assessment & Plan Assessment and Plan Assessment: 64 year old female with a past medical history of anemia, hypertension and obstructive sleep apnea is post operative day one from a left total hip arthroplasty by Dr. Larson at [facility] on 04/04/2025. The patient is recovering well with appropriate pain control on oral analgesics and improved hemoglobin of 7.6. She has persistent hypotension, anemia and dizziness requiring continued monitoring overnight at [facility] with intention to discharge home on post operative day 2. Plan: - Weight bearing as tolerated to operative extremity with front wheeled walker - Hip precautions: none - Antibiotics: 2 postoperative doses of Ancef - DVT prophylaxis: 81 mg of aspirin by mouth twice daily - Pain control: multimodal analgesia with acetaminophen, meloxicam, tramadol and oxycodone. Minimize use of opioid medication. Ice to surgical site. - Bowel regimen: docusate sodium twice daily for constipation - Physical therapy evaluation daily - Follow up: 2 week follow up at [facility] - Discharge medications: none. Post operative medications were prescribed prior to surgery - Disposition: home today pending improving vital signs and hemoglobin - Transfusion of 1 unit of packed red blood cells today, repeat hemoglobin and hematocrit - Follow up with PCP regarding anemia in the out patient setting - Hemoccult test in hospital if she has a bowel movement All patient questions were answered, and they verbalized agreement with the above plan. Call [facility] or combination welder provider with any questions or concerns. Discharge Plan Discharge Plan Patient Disposition: Home Discharge orders & Medications Discharge Orders: Discharge (Order); Ordered 04/05/25 Ordered By: Conchita Hu Prescriptions: Continued rosuvastatin 5 mg tablet 5 mg PO DAILY Qty: 90 3RF pantoprazole 40 mg tablet,delayed release (DR/EC) 40 mg PO DAILY Qty: 90 2RF lisinopril-hydrochlorothiazide 20-25 mg tablet 1 tab PO DAILY Qty: 88 5RF gabapentin 400 mg capsule 400 mg PO DAILY Qty: 90 5RF cyanocobalamin (vitamin B-12) 1,000 mcg capsule 1,000 mcg PO DAILY venlafaxine 150 mg capsule,extended release 24hr 300 mg PO DAILY Qty: 180 3RF potassium chloride 20 mEq tablet extended release 20 meq PO DAILY Qty: 90 3RF Rx Instructions: decrease to 20 mEq cholecalciferol (vitamin D3) [Vitamin D3] 125 mcg (5,000 unit) tablet 10,000 unit PO DAILY meloxicam 15 mg tablet 15 mg PO DAILY PRN (Reason: pain) Qty: 30 1RF aspirin 81 mg tablet,delayed release (DR/EC) 81 mg PO BID 45 Days Qty: 90 0RF oxycodone 5 mg tablet 5 mg PO Q6H PRN (Reason: pain) Qty: 25 0RF docusate sodium [Colace] 100 mg capsule 100 mg PO BID PRN (Reason: constipation) Qty: 60 0RF Follow up/Referrals: Fercho Haas DO [Primary Care Provider, Family Practice] Saleem Larson MD [Physician, Orthopedics] Referral Note: Follow up in 2 weeks for post-op wound check and X-Rays at [facility]. Diet/Activity/Treatments Diet: Diet as Tolerated Activity: Weightbearing as tolerated. Cold/Heat Therapy: Ice to the hip for additional pain control. Skin/Wound/Dressing Care Dressing: Keep dressing intact, clean and dry until 2 week post-op appointment. No soaking the incision site in pools or tubs. No topical ointments or creams to the incision site. Visit Report/Discharge Packet Instructions: DI for Hip Replacement, DI for Prescription Opioid Use Stand Alone Forms: Patient Portal/API Print Language: Greek Discharge Data Primary Care Provider: Fercho Haas Attending Provider: Saleem Larson PROFEE Charge Codes Discharge inpatient/observation: [id number]
[2025-04-05 09:16] VITALS: BP 121/40; PULSE 88; RESP 16; TEMP 37.2
[2025-04-05 10:16] VITALS: BP 106/57; PULSE 88; RESP 16; TEMP 37.2
[2025-04-05 12:03] VITALS: BP 109/55; PULSE 80; RESP 16; TEMP 37.2
--- NOTE | 2025-04-05 12:59 | PM.PN.IH.1 ---
Subjective Subjective Interval history: PROGRESS NOTE PATIENT SUMMARY Kristen Phillips is a postoperative patient following a total hip replacement, here for evaluation of postoperative anemia and dizziness. PAST SURGICAL HISTORY - Total hip replacement performed by myself. SUBJECTIVE The patient reported feeling lightheaded when sitting up but not severely. She experienced dizziness prior to surgery. Postoperatively, she noted, I don't want to do that anymore, regarding feeling faint. She also reported not having any vaginal spotting. The patient mentioned some dizziness upon getting up to the commode but attributed it to being in bed for an extended period. PHYSICAL EXAM 1) Constitutional: Mentating appropriately, no supplementary oxygen needed. 2) Musculoskeletal: Clean dressing, intact sciatic and femoral nerve function. LABS Hgb 6.6 ASSESSMENT - Postoperative anemia, at least partially due to blood loss although this does not explain the extent of her anemia in isolation and she reports having dizziness preceding surgery. This points towards a multifactorial anemia PLAN - Check hemoglobin levels after transfusion. - Monitor for postural changes and dizziness. - Initiate a GI workup to investigate potential causes of anemia outpatient. - Ensure patient can ambulate with PT without dizziness before discharge. - If she has a bowel movement while here I will get hemoccult testing on it to begin her GI workup. DISPOSITION Not available. FOLLOWUP Follow-up visit with [facility]. Recommend discussing potential GI issues with primary care, including possible stool testing for blood. Exam Vital Signs (past 8 hours): - 04/05/25 05:38 04/05/25 08:14 04/05/25 09:16 Temperature 99.7 F H 98.6 F 99.0 F Pulse Rate 95 H 86 88 Respiratory Rate 20 15 16 Blood Pressure 98/41 L 117/44 L 121/40 L Pulse Oximetry 93 Oxygen Delivery Method Oxygen Flow Rate 0 04/05/25 10:00 04/05/25 10:16 04/05/25 12:03 Temperature 99.0 F 99.0 F Pulse Rate 88 80 Respiratory Rate 16 16 Blood Pressure 106/57 L 109/55 L Pulse Oximetry Oxygen Delivery Method Room Air Oxygen Flow Rate Oxygen Delivery Method Room Air Oxygen Flow Rate 0 Objective Labs 04/05/25 04:26 04/05/25 04:26 Labs: Laboratory Results - last 24 hr 04/04/25 04/05/25 04/05/25 14:01 04:26 05:50 WBC 6.8 RBC 2.09 L Hgb 9.1 L 6.6 L* Hct 26.4 L 18.5 L* MCV 88.5 MCH 31.5 MCHC 35.5 RDW 12.6 Plt Count 127 L Neut % (Auto) 70.0 Lymph % (Auto) 18.0 L [place] % (Auto) 11.7 Eos % (Auto) 0.2 L Baso % (Auto) 0.1 Neut # (Auto) 4800 Lymph # (Auto) 1200 [place] # (Auto) 800 Eos # (Auto) 0 Baso # (Auto) 0 Sodium 130 L Potassium 4.1 Chloride 102 Carbon Dioxide 24 BUN 21 H Creatinine 0.74 Estimated GFR > 60 BUN/Creatinine Ratio 28.4 H Glucose 119 H Calcium 8.7 Blood Type O Positive Antibody Screen Negative Crossmatch See Detail [facility] Medical History (Updated 03/25/25 @ 08:38 by Denice Verma, RN) ALEX on CPAP Anxiety and depression Vitamin D deficiency Anemia Chronic left hip pain Bilateral hip pain Claudication Wound of skin Encounter for pre-operative cardiovascular clearance Otalgia, left ear Osteoarthritis of left knee Osteoarthritis of left hip Acquired spondylolysis of lumbar spine Skin lesions, generalized Hypercalcemia Hyponatremia Neuropathy Hypertension Obesity (BMI 35.0-39.9 without comorbidity) Sacroiliac joint dysfunction of left side Abdominal pain Right shoulder pain Right arm pain Neck pain Fatigue Hemochromatosis Surgical History (Updated 03/25/25 @ 09:03 by Denice Verma, ANASTASIYA) Hx of cholecystectomy (2002) Social History household members: spouse Smoking Status: Former smoker alcohol intake: current Assessment & Plan Time-Based Coding :: [TOTAL MINUTES] spent with patient and on the chart (including review of chart, obtaining history, exam, reviewing outside data, placing orders, documenting exam and treatment plan, and counseling patient) on [DATE]. PROFEE Personal Property Assessor Document charge(s): Yes
[2025-04-05 13:48] LABS: Hematocrit 22.0 % (36-46); Hemoglobin 7.6 g/dL (12.0-16.0)
--- NOTE | 2025-04-05 14:49 | PT.IIE ---
Current Diagnoses Unilateral primary osteoarthritis, left hip (04/04/25) Surgery Performed Operation Date: 04/04/25 07:45 Actual Procedures p Total Hip Arthroplasty/Anterior Approach(Left) - Saleem Larson MD Surgical History (Last Updated 03/25/25 @ 09:03 by Denice Verma, RN) Hx of cholecystectomy (2002) Medical History (Last Updated 03/25/25 @ 08:38 by Denice Verma, RN) Abdominal pain Acquired spondylolysis of lumbar spine Anemia Anxiety and depression Bilateral hip pain Chronic left hip pain Claudication Encounter for pre-operative cardiovascular clearance Fatigue Hemochromatosis Hypercalcemia Hypertension Hyponatremia Neck pain Neuropathy Obesity (BMI 35.0-39.9 without comorbidity) ALEX on CPAP Osteoarthritis of left hip Osteoarthritis of left knee Otalgia, left ear Right arm pain Right shoulder pain Sacroiliac joint dysfunction of left side Skin lesions, generalized Vitamin D deficiency Wound of skin Physical Therapy Inpatient Evaluation/Re-Eval M1 PT IP Prior Functional Status Start: 04/05/25 15:47 Freq: NEEDED Status: Active Protocol: Document 04/05/25 14:49 DLM (Rec: 04/05/25 15:57 DLM Desktop) Medical Review Prior Functional Status Medical History Yes Reviewed Diet/Fluid Regular Consistency Communication WFL Mobility and Gait Independent without device Activities of Daily Independent Living and IADL's Social History Household Members spouse Living Arrangements Apartment/Condo Number of Floors ( One Floor Floors) Number of Stairs To elevator Enter/Railing? Home Equipment Front Wheel Walker,Straight Cane Employment Status Retired Additional Social wide doorways in house History Comment M2 PT-IP Current Condition Start: 04/05/25 15:47 Freq: NEEDED Status: Active Protocol: Document 04/05/25 14:49 DLM (Rec: 04/05/25 15:57 DLM Desktop) Physical Therapy Current Condition Current Condition Evaluation Date 04/05/25 Treatment Diagnosis left NIMA with anterior approach, impaired gait Onset Date 04/04/25 M3 PT-IP Subjective Start: 04/05/25 15:47 Freq: NEEDED Status: Active Protocol: Document 04/05/25 14:49 DLM (Rec: 04/05/25 15:57 DLM Desktop) Subjective Physical Therapy Visit Type Type Initial Evaluation Visit Start Time 14:00 Visit Stop Time 14:49 Notes 49 min Number of CHIP BIN CONVEYOR TENDER Visits 0 M4 PT-IP Mobility and Gait Start: 04/05/25 15:47 Freq: NEEDED Status: Active Protocol: Document 04/05/25 14:49 DLM (Rec: 04/05/25 16:30 DLM Desktop) PT-Bed Mobility Assessment Supine to Sit Supine to Sit Minimal Assistance Sit to Supine Sit to Supine Minimal Assistance Scooting Scooting to Edge of Independent Bed PT-Transfer Assessment Sit to and From Stand Sit to and from Standby Assistance,Contact Guard Assistance,Use of Stand Upper Extremities Equipment Transfer Assistive Gait Belt,Front Wheeled Walker Device Transfers Transfer Destination Chair Transfer Technique Stand Step Pivot Transfer Ability Level of Assist Standby Assistance,Contact Guard Assistance,Use of Upper Extremities Gait Assessment Gait Gait Assistance Standby Assistance,Contact Guard Assist Required: Distance (Feet) 20 Able to Maintain Yes Weight Bearing Status During Gait Assistive Devices Assistive Device Gait Belt,Front Wheeled Walker Gait Deviations General Gait Pattern Antalgic,Decreased Stride Length,Step-to Gait Factors Limiting Gait Function Factors Limiting Decreased Activity Tolerance,Decreased Strength,Pain Gait Function Comments Gait Comments Pt became light-headed and nauseated when up ambulating around the bed. She ambulated 20 feet, seated rest then another 10 feet before she requested back to bed due to her symptoms. Pt left in supine resting. Her nurse was notified of her symptoms with activity. Stair Climbing Assessment Comments Stair Climbing elevator to get in, no stairs Comments PT-Balance Assessment Sitting Balance and Reactions Static Sitting Normal Balance Ability Dynamic Sitting Normal Balance Ability Standing Balance and Reactions Static Standing Good Balance Ability Dynamic Standing Good Balance Ability Device Used FWW M5 PT-IP Objective Assessments Start: 04/05/25 15:47 Freq: NEEDED Status: Active Protocol: Document 04/05/25 14:49 DLM (Rec: 04/05/25 16:30 DLM Desktop) Orientation Orientation/Cognition Level of Alertness Alert Orientation Name,Age,Birthday,Month,Date,Year,Day of Week,Place, Situation Language Function No Deficits Noted Ability Safety Awareness Understands Safety Issues Memory Description No Deficits Noted Gross Range of Motion Upper Extremity ROM Assessment Within Functional Limits Lower Extremity ROM Assessment Left Impaired Impairments post-op left NIMA with pain Strength Upper Extremity Strength Assessment Within Functional Limits Lower Extremity Strength Assessment Left Impaired Hip needs assist to lift LE off bed Knee ext 4/5 with quad area pain Coordination Assessment Gross Coordination Gross Coordination WNL Sensation Assessment Comments Sensation Comments hx of neuropathy, no changes post-op reported Muscle Tone Muscle Tone WNL Yes M6 PT-IP Treatment Start: 04/05/25 15:47 Freq: NEEDED Status: Active Protocol: Document 04/05/25 14:49 DLM (Rec: 04/05/25 16:30 DLM Desktop) Physical Therapy Treatment Exercises Exercises Ankle Pumps,Gluteal Sets,Quad Sets,Heel Slides Education Education Provided Weight Bearing Status,Post-Op Packet,Safety Other Treatments Other Treatment answered her questions about anterior hip surgery vs Performed posterior hip precautions, educated pt and her that her surgeon ordered no hip precautions for her post-op M7 PT-IP Assessment and Plan Start: 04/05/25 15:47 Freq: NEEDED Status: Active Protocol: Document 04/05/25 14:49 DLM (Rec: 04/05/25 15:57 DLM Desktop) PT Summary Assessment and Plan Potential Rehabilitation Excellent Potential Status of Condition Evolving at Evaluation Summary Impairments Pain,ROM,Strength,Bed Mobility,Transfers,Gait,Activity Tolerance Assessment Summary Lucy is alert and resting in bed today. She received a blood transfusion earlier today. She was able to stand and ambulate around the bed this visit. Unfortunately, she became nauseated and light-headed with activity that progressively got worse. Pt returned to bed to rest and manage her symptoms. Her is present today and participated in education. She is not ready for discharge home yet due to being symptomatic with activity. Will continue to follow to progress her gait to household distance for safe discharge home. Notified her nurse of her symptoms with activity. Will continue to work towards discharge home with and out-pt PT. Goals Bed Mobility Goal Independent Transfer Goal Independent,Front Wheeled Walker Gait Goal Independent,Front Wheel Walker Gait Distance 150 feet Days to Meet Goals 2 Frequency of Treatment Frequency Of Once a Day Treatment Treatment Plan Physical Therapy Bed Mobility Training,Transfer Training,Gait Training, Treatment Plan Therapeutic Exercise,Balance Retraining,Post Op Education,Discharge Planning,Hot or Cold Pack Precautions Other Precautions NO hip precautions ordered by surgeon Low H&H post-op with transfusion 04/05/25 Weight Bearing Status Weight Bearing Weight Bear as Tolerated Status Allowed Weight left LE with FWW Bearing Amount ( enter % or #) (%) Recommendations To Nursing Amount of Assist 1 Person Assist Needed Discharge Recommendations PT Discharge Home with Assistance,Outpatient PT Recommendations Other Discharge not cleared for discharge home today Recommendations Transportation Needs Private Vehicle at Discharge - PT assist 1
--- NOTE | 2025-04-05 14:52 | CM.DANOTE ---
B DCP Assessment Note pt is a 64yo F POD1 total left hip with Dr. Neo CALDERON reviewed EMR per chart, pt lives in [place] with spouse. plan is for dtr to stay with her post op to help in recovery. Post OP PT already arranged per chart review. per chart/RN, pt had low H&H today. needed unit of blood. orthostatic. redraw blood this afternoon. PT/OT still pending. per RN no immediate DCP needs at this time. P: still anticipate dc later today home with family and OP f/u. will continue to follow closely in case any DCP needs should arise KVNG Johnson Discharge Planning/Care Management CM Discharge Assessment Start: 04/04/25 16:59 Freq: Status: Active Protocol: Document 04/05/25 14:49 SL (Rec: 04/05/25 14:52 SL [id number]) Discharge Planning Assessment Assigned Discharge K[facility] Bone Proposal Specialist Provider Fercho Haas Insurance Medicare DPOA/Assigned Luis, spouse Designee Name Contact Information [phone] Advance Directives? 1 History Provided By Patient Prior Living Apartment/Condo Arrangements Household Members spouse Type of Drives own vehicle transporation used prior to admit Independent with ADL Yes 's Is patient alert and Yes oriented? DME Already Rented / FWW / Walker Owned Discharge Plan Home Referrals Initiated None needed Review Status In Process Please Provide Date 04/05/25 Initial DC Assessment Was Performed Next Review Type Continued Stay Review Pre-Anesthesia Assessment Start: 03/25/25 08:35 Freq: Status: Active Protocol: Document 03/25/25 08:35 LB (Rec: 03/25/25 08:39 LB [id number]) Pre-Anesthesia Assessment Information obtained Phone,Portal Questionnaire via Preferred Name Lucy Height 56 cm Weight 86.183 kg Body Mass Index (BMI 274.7 ) Has patient seen a Yes specialist in last 12 months? If yes, specialist Furniture Assembly Supervisor/Concrete Vibrator Operator,Oral surgeon,Orthopedist, seen Life Educator Patient hospitalized No or treated in the ER in the last year? Allergies (allergen, PCN rash reaction) MRI contrast hives Medication (name, Venlafaxine 300mg daily dose, route, Lisinopril 20/HCTZ 25 daily frequency) Pantoprosal 40 mg daily Potassium 20 meq daily Gabapentin 400mg daily Rouvestatin daily Patient experienced None in the last year Patient experienced Yes syncope or dizziness in the last year? If yes, please Inner ear, using Afrin describe Does patient have None history of Has patient ever had No a blood clot? Is patient on No anticoagulant therapy? Does patient have a No retirement sales consultant? Was cardiac testing No performed? Does patient have No history of a pacemaker/ICD? Cardiac Clearance Not Applicable Received Can patient climb a Yes flight of stairs without shortness of breath? Can patient walk Yes around the grocery store without shortness of breath? Does patient have None history of Has patient ever No been to ER/ hospitalized for asthma/COPD? Taken steroids for No asthma or COPD in the last year? Does patient use No oxygen at home? Does patient have Yes history of Sleep Apnea? Patient uses CPAP/ Yes BiPAP? Cough or cold No symptoms in the past two weeks? Does patient have No any memory problems? Does patient have None history of History of weakness, No paralysis, or other residual effects of stroke/TIA? Mobility device(s) None used Comment Will bring walker. Has patient fallen No within the past year ? Does patient have a No neurostimulator or pain stimulator? Does patient have Yes chronic pain? If yes, where? Hips and lower back Baseline pain score 7 Does patient have Yes history of GERD? Special dietary No needs or difficulty swallowing? Does patient have Yes history of kidney/ liver problems/ disease? If yes, please Fatty liver describe Does patient have No Diabetes? HgbA1C 5.8 Date 02/08/25 Insulin pump or No continuous glucose monitor? GLP-1? No Does patient have No history of thyroid problems? Is patient ? No Is patient No ? Does patient have No history of cancer? If yes, received No radiation? Alcohol intake 0 drinks per day Smoking status Former smoker Tobacco Type cigarettes Marijuana product No use? Does patient have No history of anesthesia reactions ? Family history of No anesthesia reactions ? Patient/family No member history of Malignant Hyperthermia? Does patient have No history of a blood transfusion reaction ? Anesthesia Review No Requested Spiritual beliefs None that may affect healthcare choices? Cultural practices None that may affect healthcare choices? Patient has Advanced Yes Directive and/or Power of Large Animal Veterinarian? Does patient have Yes assistance after surgery? Comment Suzanne Blue - daughter. Who is driving Suzanne Blue - jose. patient home after surgery? Phone number [phone] Relationship to Family Member patient PAC Instructions Assistance for 24 hours post-op,Bring CPAP/BIPAP,Do not shave/clip surgical site,Durable medical equipment, Medications to take/avoid,No ETOH/petroleum product on skin DOS,NPO,Post-op transportation,Pre-surgical wash, Sensory aids,Sturdy shoes/comfortable clothes,Do not bring valuables and remove jewelry
[2025-04-05] MEDS: LACTATED RINGERS 1,000 ML 42 ML IV (16:50)
[2025-04-05 20:25] VITALS: BP 111/50; PULSE 92; RESP 92; TEMP 36.7; O2SAT 97
[2025-04-05] MEDS: SENNOSIDES 8.6 MG TABLET 17.2 MG PO (21:27)
[2025-04-05] MEDS: GABAPENTIN 400 MG CAPSULE PO (21:29)
--- NOTE | 2025-04-06 01:22 | PC.NURSE ---
Addendum entered by Priyanka Carney RN 04/06/25 01:33: Occurrence on 04/05 between [id number]. Original Note: Critical lab (H/H: 6.6/18.5) reported to this RN at 05:14. Reported lab result to patient's primary RN, RN reported patient symptomatic with low blood pressures. No abnormal bruising or hardness notes, no excessive drainage at site of incision. Consensus to contact provider w/ critical lab value when the remaining labs resulted. Type and screen obtained in anticipation of likely blood transfusion. Primary RN attempted to contact on-call provider via answering service, was unable to reach anyone. This RN attempted as well, and was placed on indefinite hold w/ no answer. Attempted to call on-call ortho Gideon, no response. Attempted to contact ortho head Secrist, no response. Contacted [facility] for guidance, reached out to sang Castañeda [id number] to transfuse one unit RBCs. Placed order and notified blood bank and primary RN.
[2025-04-06 05:12] LABS: Hemoglobin 7.0 g/dL (12.0-16.0)
[2025-04-06 05:29] LABS: Hematocrit 20.1 % (36-46)
--- NOTE | 2025-04-06 07:32 | PC.NURSE ---
PT POD #2 from L total hip. Pt received 1 u PRBC on days. Pre-transfusion H&H was 6.6/18.5, 2 hrs post transfusion H&H improved to 7.6/22.0 @ 1330 04/05. During this shift, pt ambulated to bathroom 2xw/ no complaints of dizziness/lightheadedness/or diaphoresis. Vital signs remained stable through shift. Repeat labs drawn this AM @ 0445 showed H&H of 7.0/20.1 Ortho answering service contacted at ~0515, unable to reach on-call doc. ~0545 called on-call personal cell, direct to voicemail with no voicemail set up. Called Dr Larson ~0650, notified of critical value and answered questions as to patient's condition through the shift. No new orders, continuing to monitor.
[2025-04-06 08:39] VITALS: BP 146/59; PULSE 99; RESP 16; TEMP 37.2; O2SAT 99
[2025-04-06] MEDS: CHOLECALCIFEROL (VITAMIN D3) 5,000 UNIT TABLET 10000 UNIT PO (08:42)
[2025-04-06] MEDS: MELOXICAM 7.5 MG TABLET 15 MG PO (08:43)
[2025-04-06] MEDS: ASPIRIN EC 81 MG TABLET PO (08:43)
[2025-04-06] MEDS: VENLAFAXINE ER 75 MG CAP 300 MG PO (08:43)
[2025-04-06] MEDS: ACETAMINOPHEN 325 MG TABLET 650 MG PO (08:44)
[2025-04-06] MEDS: CYANOCOBALAMIN (VITAMIN B-12) 500 MCG TABLET 1000 MCG PO (08:45)
[2025-04-06] MEDS: POTASSIUM CHLORIDE 20 MEQ TAB PO (08:45)
[2025-04-06] MEDS: PANTOPRAZOLE DR 40 MG TABLET PO (08:45)
--- NOTE | 2025-04-06 08:49 | PT.IPTN ---
Current Diagnoses Unilateral primary osteoarthritis, left hip (04/05/25) Surgery Performed Operation Date: 04/04/25 07:45 Actual Procedures p Total Hip Arthroplasty/Anterior Approach(Left) - Saleem Larson MD Physical Therapy Treatment Note M2 PT-IP Current Condition Start: 04/05/25 15:47 Freq: NEEDED Status: Active Protocol: Document 04/05/25 14:49 DLM (Rec: 04/05/25 15:57 DLM Desktop) Physical Therapy Current Condition Current Condition Evaluation Date 04/05/25 Treatment Diagnosis left NIMA with anterior approach, impaired gait Onset Date 04/04/25 M3 PT-IP Subjective Start: 04/05/25 15:47 Freq: NEEDED Status: Active Protocol: Document 04/06/25 09:28 NW (Rec: 04/06/25 09:35 NW [id number]) Subjective Physical Therapy Visit Type Type Treatment Note Visit Start Time 08:15 Visit Stop Time 08:49 Physical Therapy Visit Comments Patient Comments Pt feels ready to go home. Patient Goals Go home. Therapy Pain Assessment Location Left Hip Intensity 5 Description Burning Pain Behaviors Guarding Pain Management Modification of Treatment,Timing of Activity with Techniques Medications M4 PT-IP Mobility and Gait Start: 04/05/25 15:47 Freq: NEEDED Status: Active Protocol: Document 04/06/25 09:28 NW (Rec: 04/06/25 09:35 NW [id number]) PT-Transfer Assessment Sit to and From Stand Sit to and from Standby Assistance,1 Person Assistance,Use of Upper Stand Extremities Transfers Transfer Destination Chair Transfer Technique Stand Step Pivot Transfer Ability Level of Assist Standby Assistance Comments Mobility Comments Vitals remain WNL of 120s/high 40s/50s seated and upon stance. Pt has no s/s of orthostatic hypotension. Good carryover for UE use with transfers and AD management. WBOS required upon stance to maintain balance. Gait Assessment Gait Gait Assistance Standby Assistance Required: Distance (Feet) 80 Able to Maintain Yes Weight Bearing Status During Gait Assistive Devices Assistive Device Gait Belt,Front Wheeled Walker Gait Deviations General Gait Pattern Antalgic,Decreased Stride Length,Step-to Gait Factors Limiting Gait Function Factors Limiting Decreased Activity Tolerance,Decreased Strength,Pain Gait Function Comments Gait Comments No s/s of orthostatic hypotension noted. Able to ambulate with good ebony and velocity with adequate AD management. Improved heel to toe progression. Stair Climbing Assessment Comments Stair Climbing elevator to get in, no stairs Comments PT-Balance Assessment Sitting Balance and Reactions Static Sitting Normal Balance Ability Dynamic Sitting Normal Balance Ability Standing Balance and Reactions Static Standing Good Balance Ability Dynamic Standing Good Balance Ability Device Used FWW M5 PT-IP Objective Assessments Start: 04/05/25 15:47 Freq: NEEDED Status: Active Protocol: Document 04/05/25 14:49 DLM (Rec: 04/05/25 16:30 DLM Desktop) Orientation Orientation/Cognition Level of Alertness Alert Orientation Name,Age,Birthday,Month,Date,Year,Day of Week,Place, Situation Language Function No Deficits Noted Ability Safety Awareness Understands Safety Issues Memory Description No Deficits Noted Gross Range of Motion Upper Extremity ROM Assessment Within Functional Limits Lower Extremity ROM Assessment Left Impaired Impairments post-op left NIMA with pain Strength Upper Extremity Strength Assessment Within Functional Limits Lower Extremity Strength Assessment Left Impaired Hip needs assist to lift LE off bed Knee ext 4/5 with quad area pain Coordination Assessment Gross Coordination Gross Coordination WNL Sensation Assessment Comments Sensation Comments hx of neuropathy, no changes post-op reported Muscle Tone Muscle Tone WNL Yes M6 PT-IP Treatment Start: 04/05/25 15:47 Freq: NEEDED Status: Active Protocol: Document 04/06/25 09:28 NW (Rec: 04/06/25 09:35 NW [id number]) Physical Therapy Treatment Exercises Exercises Ankle Pumps,Gluteal Sets,Quad Sets,Heel Slides Education Education Provided Weight Bearing Status,Post-Op Packet,Safety M7 PT-IP Assessment and Plan Start: 04/05/25 15:47 Freq: NEEDED Status: Active Protocol: Document 04/06/25 09:28 NW (Rec: 04/06/25 09:35 NW [id number]) PT Summary Assessment and Plan Potential Rehabilitation Excellent Potential Status of Condition Stable at Evaluation Summary Impairments Pain,ROM,Strength,Bed Mobility,Transfers,Gait,Activity Tolerance Assessment Summary Pt has no s/s of orthostatic hypotension today and is able to perform transfers and ambulate at SBA for distance of 80 ft. Pt has OP PT set up to begin with adequate family assistance with daughter home to help. Reviewed post op packet again with good retention. Conversated with regards to care transfers. Pt is ready to discharge home once medically stable. Goals Bed Mobility Goal Independent Transfer Goal Independent,Front Wheeled Walker Gait Goal Independent,Front Wheel Walker Gait Distance 150 feet Days to Meet Goals 2 Frequency of Treatment Frequency Of Once a Day Treatment Treatment Plan Physical Therapy Bed Mobility Training,Transfer Training,Gait Training, Treatment Plan Therapeutic Exercise,Balance Retraining,Post Op Education,Discharge Planning,Hot or Cold Pack Precautions Other Precautions No hip precautions ordered by surgeon Weight Bearing Status Weight Bearing Weight Bear as Tolerated Status Allowed Weight left LE with FWW Bearing Amount ( enter % or #) (%) Recommendations To Nursing Amount of Assist 1 Person Assist Needed Discharge Recommendations PT Discharge Home with Assistance,Outpatient PT Recommendations Transportation Needs Private Vehicle at Discharge - PT assist 1
[2025-04-06] MEDS: DOCUSATE 100 MG CAPSULE PO (08:54)
--- NOTE | 2025-04-06 11:14 | PM.DS.IH.1 ---
History of Present Illness History of Present Illness Date Patient Seen: 04/06/25 Time Patient Seen: 11:14 Chief complaint: Left NIMA anterior Narrative: Lucy is a very pleasant 64 year old female who is seen today on POD#2 s/p L anterior NIMA by Dr. Larson. There were no known intraoperative complications and no signficant blood loss however her postoperative recovery has been complicated by postoperative anemia and dizziness. There was concern for post operative dizziness in PACU and a hemoglobin/hematocrit was obtained which resutled as 9.1/26.4 immediately post operatively. Later the patient was transferred to the acute care unit [facility] for monitoring overnight and physical therapy. She was unable to tolerate physical therapy on post operative day 0 due to dizziness. On postoperative day one, the patient was making urine spontaneously. Her hemoglobin on post operative day 1 was 6.6 and she consented to a transfusion of 1 unit of packed red blood cells. Her repeat hemoglobin and hematocrit was 7.6. After the transfusion she denied chest pain and dypsnea with improved dizziness. Her blood pressure improved as well. The patient was awaiting physical therapy evaluation during orthopedic rounds. Pain was well-controlled on oral analgesics. During her PT session on POD#1 patient was reported to be nauseous and dizzy leading to a shortened session. Given persistent hypotension, anemia and dizziness she required another overnight stay at [facility] for continued treatment and monitoring. She denies any recent stomach pain, reflux, changes in her bowel habits, dark colored stools or vaginal spotting. She reports she has been feeling dizzy for several weeks leading up to surgery which she attributed to incense burning in her home. Today upon evaluation she was resting in bed comfortably, she reported working with physical therapy today without any dizziness or lightheadedness, she also reports getting up to use the restroom multiple times this morning already without any dizziness. She tells me overall she is feeling significantly better than she did yesterday and feels ready to d/c to home. She has her post-op pain medication at home already as well as her PT sessions set up. She reports her pain continues to be well controlled today w/ oral analgesics. We discussed that she should f/u w/ her PCP to further evaluate for any possible cause of slow/ongoing chronic bleeding, her pre-op H&H was 11.8 and 34.2 with an RBC of 3.87. ROS: Denies fever, chills, chest pain, SOB, nausea, vomiting, lightheadedness, dizziness. Discharge Providers Provider Date of admission: 04/05/25 13:03 Discharge Date: 04/06/25 Primary care physician: Fercho Haas DO Consults: 04/04/25 07:52 Consult to Anesthesiology Routine Comment: Consulting Provider: Anesthesiologist Reason for consultation: Regional block for post-operative pain control 04/04/25 13:22 Consult to Physical Therapy Evaluate & Treat Comment: Physician Instructions: Evaluate and Treat 04/04/25 16:19 Consult to Discharge Planning Routine Comment: Consult to Physical Therapy Evaluate & Treat Comment: Physician Instructions: Postop NIMA Discharge provider: Kassidy Grove PA-C Summary Hospital Course Discharge Diagnosis: stable s/p left anterior total hip arthroplasty Hospital Course: The patient underwent left anterior total hip arthroplasty 04/04/2025 without significant intraoperative blood loss or intraoperative complication however she did struggle w/ post-operative dizziness and lightheadedness accompanied with postoperative anemia which requried her to stay until POD#2 to stabilize, now resolved and w/o symptoms of orthostatic hypotension or dizziness. She recieved one unit of PRBC on POD#1. Status at Discharge Cognitive/behavioral status at discharge: oriented Functional status at discharge: uses cane/walker Time Spent with Patient Time spent: Less than 30 minutes Exam Vital Signs (past 8 hours): - 04/06/25 08:39 Temperature 98.9 F Pulse Rate 99 H Respiratory Rate 16 Blood Pressure 146/59 H Pulse Oximetry 99 Oxygen Flow Rate 0 Oxygen Delivery Method Room Air Oxygen Flow Rate 0 Narrative Exam Narrative: Patient lying comfortably in bed during our interview today. No acute distress. AOx3. Grossly normal alignment of the LLE with milds- moderate swelling to the thigh. 5/5 strength with DF, PF, EHL bilaterally. Gross sensation intact throughout bilateral lower extremities. Calves soft and non-tender bilaterally. SCDs are on and functioning. Post-surgical dressing/Aquacel dressing clean, dry and intact over the left hip without drainainge. Objective Labs 04/06/25 04:46 04/05/25 04:26 Labs: Laboratory Results - last 24 hr 04/05/25 04/05/25 04/06/25 05:50 13:30 04:46 Hgb 7.6 L 7.0 L Hct 22.0 L 20.1 L* Crossmatch See Detail [facility] Medical History (Updated 03/25/25 @ 08:38 by Denice Verma, RN) ALEX on CPAP Anxiety and depression Vitamin D deficiency Anemia Chronic left hip pain Bilateral hip pain Claudication Wound of skin Encounter for pre-operative cardiovascular clearance Otalgia, left ear Osteoarthritis of left knee Osteoarthritis of left hip Acquired spondylolysis of lumbar spine Skin lesions, generalized Hypercalcemia Hyponatremia Neuropathy Hypertension Obesity (BMI 35.0-39.9 without comorbidity) Sacroiliac joint dysfunction of left side Abdominal pain Right shoulder pain Right arm pain Neck pain Fatigue Hemochromatosis Surgical History (Updated 03/25/25 @ 09:03 by Denice Verma, ANASTASIYA) Hx of cholecystectomy (2002) Social History household members: spouse Smoking Status: Former smoker alcohol intake: current Discharge Assessment & Plan Assessment and Plan Assessment: 64 year old female with a past medical history of anemia, hypertension and obstructive sleep apnea is post operative day two from a left total hip arthroplasty by Dr. Larson at [facility] on 04/04/2025. The patient is recovering well with appropriate pain control on oral analgesics. She is s/p one unit PRBC and current H&H this AM is 7.0 and 20.1 although asymptomatic. No current dizziness or lightheadedness, worked with physical therapy and has ambulated to the restroom several times today without issue. Hypotension resolved. Stable to d/c to home w/ outpatient f/u w/ PCP for further evaluation of anemia and 2 week post-op appt w/ Orthopedics. Plan: - Weight bearing as tolerated to operative extremity with front wheeled walker - Hip precautions: none - DVT prophylaxis: 81 mg of aspirin by mouth twice daily for 6 weeks - Pain control: multimodal analgesia with acetaminophen, meloxicam and oxycodone. Minimize use of opioid medication. Ice to surgical site. Patient has medications at home already. - Bowel regimen: docusate sodium twice daily for constipation - Physical therapy 2x a week outapatient to improve mobility. - Follow up: 2 week follow up at [facility] All patient questions were answered, and they verbalized agreement with the above plan. Call [facility] or application specialist provider with any questions or concerns. Discharge Plan Discharge Plan Patient Disposition: Home Discharge orders & Medications Prescriptions: Continued rosuvastatin 5 mg tablet 5 mg PO DAILY Qty: 90 3RF pantoprazole 40 mg tablet,delayed release (DR/EC) 40 mg PO DAILY Qty: 90 2RF lisinopril-hydrochlorothiazide 20-25 mg tablet 1 tab PO DAILY Qty: 88 5RF gabapentin 400 mg capsule 400 mg PO DAILY Qty: 90 5RF cyanocobalamin (vitamin B-12) 1,000 mcg capsule 1,000 mcg PO DAILY venlafaxine 150 mg capsule,extended release 24hr 300 mg PO DAILY Qty: 180 3RF potassium chloride 20 mEq tablet extended release 20 meq PO DAILY Qty: 90 3RF Rx Instructions: decrease to 20 mEq cholecalciferol (vitamin D3) [Vitamin D3] 125 mcg (5,000 unit) tablet 10,000 unit PO DAILY meloxicam 15 mg tablet 15 mg PO DAILY PRN (Reason: pain) Qty: 30 1RF aspirin 81 mg tablet,delayed release (DR/EC) 81 mg PO BID 45 Days Qty: 90 0RF oxycodone 5 mg tablet 5 mg PO Q6H PRN (Reason: pain) Qty: 25 0RF docusate sodium [Colace] 100 mg capsule 100 mg PO BID PRN (Reason: constipation) Qty: 60 0RF Follow up/Referrals: Fercho Haas DO [Primary Care Provider, Family Practice] Saleem Larson MD [Physician, Orthopedics] Referral Note: Follow up in 2 weeks for post-op wound check and X-Rays at [facility]. Diet/Activity/Treatments Diet: Diet as Tolerated Activity: Weightbearing as tolerated. Cold/Heat Therapy: Ice to the hip for additional pain control. Skin/Wound/Dressing Care Dressing: Keep dressing intact, clean and dry until 2 week post-op appointment. No soaking the incision site in pools or tubs. No topical ointments or creams to the incision site. Visit Report/Discharge Packet Instructions: DI for Hip Replacement, DI for Prescription Opioid Use Stand Alone Forms: [employer], Patient Portal/API, Stroke Signs & Symptoms, Influenza Vaccine Info, Notice of Privacy Practices, Inpatient vs Outpatient, Pneumococcal Vaccine Info, Pt. Rights & Responsibilities Discharge Data Primary Care Provider: Fercho Haas PROFEE Charge Codes Discharge inpatient/observation: [id number]
--- NOTE | 2025-04-06 11:33 | CM.DPNOTE ---
DCP note LOADER TECHNICIAN reviewed EMR per RN labs improved, per ortho PA ordered to dc home today. per PT cleared for home with family support today. no new needs identified at this time P: dc home with family support and OP F/u. will continue to follow closely in case any additional DCP needs should arise KVNG Johnson
--- NOTE | 2025-04-06 13:18 | PC.NURSE ---
Patient is A&OX4. VSS, afebrile on RA. She denies feeling dizzy this a.m. upon standing and ambulating to the BR. She tolerates breakfast well. She is cleared by PT after breakfast. PA and Dr. Peña notified and arrived to discharge patient after evaluation at bedside. Family arrives to tranpsort patient at approximately noon. She verbalizes understanding of site care, activity precautions, medications, follow up appointments as well as s/sx of complication. She is escorted via w/ch to private vehicle with daughter and by RN with all of her belongings including rings and CPAP machine at approximately 1210 pm.
== END 2025-04-06 12:10 | disposition home or self-care (01) | DRG 470 ==
LOC: OR 04-06 07:26 → AC 04-06 07:26
PROVIDERS: Physician Assistant Surgical; Admitting Provider Orthopaedic Surgery Adult Reconstructive Orthopaedic Surgery; PCP Family Medicine; Referring Provider Orthopaedic Surgery Adult Reconstructive Orthopaedic Surgery; Visit Provider Orthopaedic Surgery Adult Reconstructive Orthopaedic Surgery
PROC: 0SRB03A Replacement of Left Hip Joint with Ceramic Synthetic Substitute, Uncemented, Open Approach (ICD-10-PCS; CPT 27130; principal; 2025-04-04 07:45)
DX: M16.12 Unilateral primary osteoarthritis, left hip (principal); D62 Acute posthemorrhagic anemia; E55.9 Vitamin D deficiency, unspecified; I95.9 Hypotension, unspecified; R42 Dizziness and giddiness; I10 Essential (primary) hypertension; F32.A Depression, unspecified; Z87.891 Personal history of nicotine dependence
CPT/HCPCS: 36415; 36430; 73502; 76000; 80048; 85014; 85018; 85025; 86850; 86900; 86901; 97110; 97162; 97530; C1776; P9016; C1713; J0131; J0330; J0689; J1171; J1885; J2250; J2704; J3010; J7120; P9045